=== PATIENT | female | born 1950 | race American Indian/Alaskan Native ===

== ENCOUNTER 2018-07-16 22:42 | Emergency (ER) | payer MEDICARE ==
[2018-07-16] MEDS ORDERED: NACL 0.9% 1000 ML 1,000 ML IV ONE (23:05)
[2018-07-16] MEDS ORDERED: ceFAZolin 2 GM in NACL 0.9% 100 ML IV ONE (23:05)
--- NOTE | 2018-07-16 23:07 | Emergency Department Report ---
ED General Adult HPI - General Chief complaint: Dyspnea/Respdistress Stated complaint: RESPIRATORY DISTRESS Time Seen by Provider: 07/16/18 22:52 Source: EMS (ems notes not available at time of chart dictation), RN notes reviewed, old records reviewed Mode of arrival: Stretcher Limitations: Altered Mental Status, Physical Limitation - History of Present Illness Initial comments: This is a 67-year-old female. The patient is a resident of a local fci, and has a history of diabetes, seizure, hypertension, nonverbal, chronic respiratory failure, on chronic tracheostomy, recently admitted to this hospital for sepsis, presumed secondary to left lung pneumonia, lung abscess, and empyema. Patient had a prolonged hospitalization, and was found to have a loculated left lung effusion, that received CT scan was started on antibiotics and currently has an indwelling left upper extremity PICC line, receiving cefazolin, 2 g, every 8 hours, until 08/01/2018. During her previous hospitalization, the case was discussed with CT surgery on- call at [facility], and the case was specifically discussed with CT surgeon, Dr. Gonzalez, who recommended there is no surgical indication unless patient has been on antibiotics for 4-6 weeks with no improvement. Patient is supposed to be following up with [facility] infectious disease consultants, who recommended laboratory monitoring, including CBC with differential, creatinine, liver tests, sedimentation rate, CRP once a week. Today, the patient is sent to the ER from her fci for evaluation of respiratory distress. The patient is nonverbal and is not able to describe exacerbating or relieving factors. As per verbal report from the nurse currently For the patient, the patient was apparently desaturating at the fci. She has chronic respiratory failure, and apparently requires chronic oxygen therapy. It is not known the patient was on her oxygen or not during the "desaturations." The patient is currently resting on the stretcher, no distress, nonverbal, saturating well on supplemental tracheostomy oxygen, and hemodynamically stable at this point in time. -: unknown Radiation: other Quality: other Consistency: other Improves with: other Worsens with: other Associated Symptoms: other - Related Data Home Medications Medication Instructions Recorded Confirmed Last Taken ALPRAZolam [Xanax] 1 mg FEEDTUBE BID PRN 06/19/18 06/19/18 Unknown Acetaminophen [Acetaminophen TAB] 650 mg FEEDTUBE PRN PRN 06/19/18 06/19/18 Unknown Amlodipine Besylate [Norvasc] 10 mg FEEDTUBE QDAY 06/19/18 06/19/18 Unknown Carvedilol [Coreg] 6.25 mg PO BID 06/19/18 06/19/18 Unknown Chlorhexidine Mouthwash [Peridex] 15 ml PO BID 06/19/18 06/19/18 Unknown FLUoxetine [PROzac] 20 mg PO QDAY 06/19/18 06/19/18 Unknown Famotidine [Pepcid] 20 mg FEEDTUBE HS 06/19/18 06/19/18 Unknown Lacosamide [Vimpat] 200 mg FEEDTUBE Q12H 06/19/18 06/19/18 Unknown Magnesium Oxide [Mag-Ox] 400 mg FEEDTUBE QDAY 06/19/18 06/19/18 Unknown Melatonin 5 mg FEEDTUBE HS 06/19/18 06/19/18 Unknown Psyllium Husk [Konsyl] 1 each FEEDTUBE DAILY 06/19/18 06/19/18 Unknown Previous Rx's Medication Instructions Recorded Last Taken Type Insulin NPH/Regular [NovoLIN 70/30] 36 unit SUB-Q BIDDIAB units 07/01/18 Unknown Rx ceFAZolin Sodium [ceFAZolin] 2 gm IV Q8HR 30 Days vial 07/01/18 Unknown Rx levETIRAcetam [Keppra ORAL LIQ] 1,500 mg FEEDTUBE BID 30 Days 07/01/18 Unknown Rx bottle Allergies Allergy/AdvReac Type Severity Reaction Status Date / Time No Known Allergies Allergy Unverified 06/19/18 09:20 ED Review of Systems ROS: Stated complaint: RESPIRATORY DISTRESS Other details as noted in HPI Comment: Unobtainable due to pts medical conditions ED Past Medical Hx - Past Medical History Hx Hypertension: Yes Hx CVA: Yes Hx Diabetes: Yes Hx Deep Vein Thrombosis: No Hx Seizures: Yes Hx Psychiatric Treatment: Yes (depression) - Surgical History Hx Pacemaker: No Hx Internal Defibrillator: No - Social History Smoking Status: Unknown if ever smoked - Medications Home Medications: Home Medications Medication Instructions Recorded Confirmed Last Taken Type ALPRAZolam [Xanax] 1 mg FEEDTUBE BID PRN 06/19/18 06/19/18 Unknown History Acetaminophen [Acetaminophen TAB] 650 mg FEEDTUBE PRN PRN 06/19/18 06/19/18 Unknown History Amlodipine Besylate [Norvasc] 10 mg FEEDTUBE QDAY 06/19/18 06/19/18 Unknown History Carvedilol [Coreg] 6.25 mg PO BID 06/19/18 06/19/18 Unknown History Chlorhexidine Mouthwash [Peridex] 15 ml PO BID 06/19/18 06/19/18 Unknown History FLUoxetine [PROzac] 20 mg PO QDAY 06/19/18 06/19/18 Unknown History Famotidine [Pepcid] 20 mg FEEDTUBE HS 06/19/18 06/19/18 Unknown History Lacosamide [Vimpat] 200 mg FEEDTUBE Q12H 06/19/18 06/19/18 Unknown History Magnesium Oxide [Mag-Ox] 400 mg FEEDTUBE QDAY 06/19/18 06/19/18 Unknown History Melatonin 5 mg FEEDTUBE HS 06/19/18 06/19/18 Unknown History Psyllium Husk [Konsyl] 1 each FEEDTUBE DAILY 06/19/18 06/19/18 Unknown History Insulin NPH/Regular [NovoLIN 70/30] 36 unit SUB-Q BIDDIAB units 07/01/18 Unkn own Rx ceFAZolin Sodium [ceFAZolin] 2 gm IV Q8HR 30 Days vial 07/01/18 Unknown Rx levETIRAcetam [Keppra ORAL LIQ] 1,500 mg FEEDTUBE BID 30 Days 07/01/18 Unknown Rx bottle ED Physical Exam - General Limitations: Altered Mental Status, Physical Limitation General appearance: in no apparent distress - Head Head exam: Present: atraumatic, normocephalic - Eye Eye exam: Present: normal appearance - ENT ENT exam: Present: normal orophraynx, mucous membranes moist, normal external ear exam, other (tracheostomy in place, with no redness, pus or streaking) - Neck Neck exam: Present: normal inspection. Absent: tenderness, meningismus - Respiratory Respiratory exam: Present: rhonchi (very faint rhonchi noted). Absent: respiratory distress - Cardiovascular Cardiovascular Exam: Present: regular rate, normal rhythm, normal heart sounds. Absent: bradycardia, tachycardia, irregular rhythm, systolic murmur, diastolic murmur, rubs, gallop - GI/Abdominal GI/Abdominal exam: Present: soft, other (feeding tube noted, with no redness, pus or streaking). Absent: distended, tenderness, guarding, rebound, rigid, pulsatile mass - Rectal Rectal exam: Present: normal inspection, other (minimal sacral ulcers noted, chaperoned by ER radio installer [employer]) - Extremities Exam Extremities exam: Present: normal inspection, other (2+ pulses noted in the bila teral upper, lower extremities. PICC line noted in the left upper extremity). Absent: normal capillary refill, pedal edema, joint swelling, calf tenderness - Back Exam Back exam: Present: normal inspection. Absent: paraspinal tenderness, vertebral tenderness - Neurological Exam Neurological exam: Present: altered, other (nonverbal, does not follow commands, not noted to be moving extremities) - Skin Skin exam: Present: warm, dry, intact, normal color. Absent: rash ED Course Vital Signs 07/16/18 07/17/18 22:51 01:38 Temperature 100 F H Pulse Rate 99 H Respiratory 20 18 Rate Blood Pressure 134/103 O2 Sat by Pulse 96 Oximetry - Reevaluation(s) Reevaluation #1: 07/17/18 00:01 Differential diagnosis, including not limited to: Mucous plugging, postobstructive pneumonia, pneumonia, pulmonary embolus, accidental prehospital oxygen removal assessment and plan: 67-year-old female with reportedly resolved hypoxia. Has a low-grade temperature in the emergency room, heart rate of 100, and found to be hyperglycemic. Laboratory studies otherwise unless far appear to be unchanged from prior. Lactic acid of 2.1 reviewed and appreciated. Patient currently on IV antibiotics. We will give her IV fluids, give her her dose of cefazolin, give insulin, and obtain CT scan of the chest. We will reassess after her initial data points have resulted Reevaluation #2: 07/17/18 02:39 The patient has been observed in the ER for hours without clinical decompensation. Her CT scan shows decreasing pneumonia, patient's currently radha ing antibiotics, otherwise,in airway obstruction or pulmonary embolus. The patient is observed in the ER for many hours without clinical decompensation, and is medically suitable to return back to her fci, to continue her antibiotic therapy, and to follow up with outpatient infectious disease. ED Medical Decision Making - Lab Data Result diagrams: 07/16/18 23:16 07/16/18 23:16 Vital Signs 07/16/18 22:51 Temperature 100 F H Pulse Rate 99 H Respiratory 20 Rate Blood Pressure 134/103 O2 Sat by Pulse 96 Oximetry Lab Results 07/16/18 07/16/18 07/16/18 Range/Units 23:16 23:16 23:16 WBC 8.7 (4.5-11.0) K/mm3 RBC 3.18 L (3.65-5.03) M/mm3 Hgb 10.0 L (10.1-14.3) gm/dl Hct 30.2 L (30.3-42.9) % MCV 95 (79-97) fl MCH 32 (28-32) pg MCHC 33 (30-34) % RDW 14.4 (13.2-15.2) % Plt Count 187 (140-440) K/mm3 Lymph % (Auto) 14.4 (13.4-35.0) % [place] % (Auto) 11.3 H (0.0-7.3) % Eos % (Auto) 0.6 (0.0-4.3) % Baso % (Auto) 1.2 (0.0-1.8) % Lymph # 1.2 (1.2-5.4) K/mm3 [place] # 1.0 H (0.0-0.8) K/mm3 Eos # 0.0 (0.0-0.4) K/mm3 Baso # 0.1 (0.0-0.1) K/mm3 Seg Neutrophils % 72.5 H (40.0-70.0) % Seg Neutrophils # 6.3 (1.8-7.7) K/mm3 PT (12.2-14.9) Sec. INR (0.87-1.13) APTT (24.2-36.6) Sec. Sodium 137 (137-145) mmol/L Potassium 4.1 (3.6-5.0) mmol/L Chloride 99.0 (98-107) mmol/L Carbon Dioxide 30 (22-30) mmol/L Anion Gap 12 mmol/L BUN 31 H (7-17) mg/dL Creatinine 0.7 (0.7-1.2) mg/dL Estimated GFR > 60 ml/min BUN/Creatinine Ratio 44 % Glucose 325 H (65-100) mg/dL Lactic Acid 2.10 H* (0.7-2.0) mmol/L Calcium 8.6 (8.4-10.2) mg/dL Magnesium 1.90 (1.7-2.3) mg/dL Total Bilirubin 0.80 (0.1-1.2) mg/dL AST 44 H (5-40) units/L ALT 9 (7-56) units/L Alkaline Phosphatase 284 H (35-129) units/L Total Creatine Kinase 17 L (30-135) units/L Total Protein 8.0 (6.3-8.2) g/dL Albumin 2.4 L (3.9-5) g/dL Albumin/Globulin Ratio 0.4 % 07/16/18 Range/Units 23:16 WBC (4.5-11.0) K/mm3 RBC (3.65-5.03) M/mm3 Hgb (10.1-14.3) gm/dl Hct (30.3-42.9) % MCV (79-97) fl MCH (28-32) pg MCHC (30-34) % RDW (13.2-15.2) % Plt Count (140-440) K/mm3 Lymph % (Auto) (13.4-35.0) % [place] % (Auto) (0.0-7.3) % Eos % (Auto) (0.0-4.3) % Baso % (Auto) (0.0-1.8) % Lymph # (1.2-5.4) K/mm3 [place] # (0.0-0.8) K/mm3 Eos # (0.0-0.4) K/mm3 Baso # (0.0-0.1) K/mm3 Seg Neutrophils % (40.0-70.0) % Seg Neutrophils # (1.8-7.7) K/mm3 PT 17.7 H (12.2-14.9) Sec. INR 1.41 H (0.87-1.13) APTT 26.0 (24.2-36.6) Sec. Sodium (137-145) mmol/L Potassium (3.6-5.0) mmol/L Chloride (98-107) mmol/L Carbon Dioxide (22-30) mmol/L Anion Gap mmol/L BUN (7-17) mg/dL Creatinine (0.7-1.2) mg/dL Estimated GFR ml/min BUN/Creatinine Ratio % Glucose (65-100) mg/dL Lactic Acid (0.7-2.0) mmol/L Calcium (8.4-10.2) mg/dL Magnesium (1.7-2.3) mg/dL Total Bilirubin (0.1-1.2) mg/dL AST (5-40) units/L ALT (7-56) units/L Alkaline Phosphatase (35-129) units/L Total Creatine Kinase (30-135) units/L Total Protein (6.3-8.2) g/dL Albumin (3.9-5) g/dL Albumin/Globulin Ratio % - EKG Data -: EKG Interpreted by Wy - EKG Data 07/17/18 00:00 Sinus tachycardia, 100 bpm, left axis deviation, QTC prolonged, high left ventricular voltage, not consistent with ST elevation myocardial infarction, prolonged NJ interval, borderline atrial enlargement, appears unchanged from prior EKG from 06/19/2018 - Radiology Data Radiology results: report reviewed, image reviewed Ordering Physician: SIMIN TURK MD Date of Service: 07/16/18 Procedure(s): XR chest 1V ap Accession Number(s): [id number] cc: SIMIN TURK MD Fluoro Time In Minutes: FINAL REPORT EXAM: XR CHEST 1V AP HISTORY: dyspnea TECHNIQUE: Chest single view AP PRIORS: None. FINDINGS: Left PICC line again identified catheter tip at the junction of the brachiocephalic and SVC unchanged. No focal pulmonary infiltrate or pleural effusion identified on the view obtained. No evidence for pneumothorax. Cardiac and mediastinal contours are unchanged no new abnormality identified in the chest. Tracheostomy is again noted. IMPRESSION: Tracheostomy and left PICC line again noted unchanged No acute change identified in the chest COMPARISON: CT of the chest from June 2018. Chest x-ray from today. TECHNIQUE: Contiguous axial images were obtained. Additional sagittal and coronal reformatted images were obtained. Administration of IV contrast given per institution protocol. Images submitted for interpretation. FINDINGS: Mild cardiac enlargement. Ascending thoracic aorta measures 3.4 centimeters in diameter within normal limits. Descending thoracic aorta measures 2.7 centimeters. No acute dissection or rupture. No pathologically enlarged intrathoracic or axillary lymph nodes. No pulmonary embolus. Tracheostomy tube is in place. Soft tissue partially opacifies the tracheostomy tube. Moderate left and small right-sided pleural effusions with nonspecific linear consolidations of the lower lobes. No obstructive lesion centrally within the tracheobronchial tree. [id number] degenerative changes of the thoracic spine. Fatty infiltration of visualized liver. Cholelithiasis. Liver is enlarged measuring 24 centimeters. Trace fluid at the margin of the liver. Nodular thickening of the adrenal glands. IMPRESSION: No pulmonary embolus. Moderate left and small right-sided pleural effusion with nonspecific linear consolidations of the lower lobes concerning for combination of atelectasis and pneumonia. Pleural effusion on the left is slightly decreased in size compared to prior study and remains partially loculated. Cholelithiasis. Mild enlargement of visualized liver with fatty infiltration. Trace perihepatic fluid. Critical care attestation.: If time is entered above; I have spent that time in minutes in the direct care of this critically ill patient, excluding procedure time. ED Disposition Clinical Impression: History of respiratory failure [facility] IP Is pt being admited?: No Does the pt Need Aspirin: No Condition: Fair Additional Instructions: CT scan today showed the following findings: COMPARISON: CT of the chest from June 2018. Chest x-ray from today. IMPRESSION: No pulmonary embolus. Moderate left and small right-sided pleural effusion with nonspecific linear consolidations of the lower lobes concerning for combination of atelectasis and pneumonia. Pleural effusion on the left is slightly decreased in size compared to prior study and remains partially loculated. Cholelithiasis. Mild enlargement of visualized liver with fatty infiltration. Trace perihepatic fluid. The patient should continue her outpatient medications, including antibiotics, and please be aware that while the patient was in the emergency room this evening, she received 2 g of cefazolin, including IV fluids. She was also given insulin for hyperglycemia. Please continue outpatient medications, follow-up with the patient's primary care doctor or infectious disease specialists within the next 7-10 days, return to the ER right away with lethargy, irritability, projectile vomiting, change in mental status, confusion, recurrent oxygen desaturation. Please make certain that the patient's tracheostomy collar as continuous oxygen as the patient has chronic respiratory failure. Referrals: JIGNESH BERMUDEZ MD [Staff Physician] - 7-10 days Forms: Accompanied Note
[2018-07-16 23:33] LABS: Basophils # (Auto) 0.1 K/mm3 (0.0-0.1); Basophils % (Auto) 1.2 % (0.0-1.8); Eosinophils % (Auto) 0.6 % (0.0-4.3); Hematocrit 30.2 % (30.3-42.9); Lymphocytes # (Auto) 1.2 K/mm3 (1.2-5.4); Lymphocytes % (Auto) 14.4 % (13.4-35.0); Mean Corpuscular HGB Conc 33 % (30-34); Mean Corpuscular Volume 95 fl (79-97); Monocytes % (Auto) 11.3 % (0.0-7.3); Platelet Count 187 K/mm3 (140-440); Red Blood Count 3.18 M/mm3 (3.65-5.03); Red Cell Distribution Width 14.4 % (13.2-15.2)
[2018-07-16 23:40] LABS: INR 1.41 (0.87-1.13)
[2018-07-16 23:47] LABS: Alanine Aminotransferase 9 units/L (7-56); Albumin 2.4 g/dL (3.9-5); BUN/Creatinine Ratio 44; Blood Urea Nitrogen 31 mg/dL (7-17); Calcium 8.6 mg/dL (8.4-10.2); Hemolysis Index 2
--- NOTE | 2018-07-16 23:51 | XRay Report ---
FINAL REPORT EXAM: XR CHEST 1V AP HISTORY: dyspnea TECHNIQUE: Chest single view AP PRIORS: None. FINDINGS: Left PICC line again identified catheter tip at the junction of the brachiocephalic and SVC unchanged . No focal pulmonary infiltrate or pleural effusion identified on the view obtained. No evidence for pneumothorax. Cardiac and mediastinal contours are unchanged no new abnormality identified in the nick st. Tracheostomy is again noted. IMPRESSION: Tracheostomy and left PICC line again noted unchanged No acute change identified in the chest
[2018-07-16] MEDS ORDERED: HumuLIN R IV ONE (23:52)
[2018-07-17 01:21] LABS: Erythrocyte Sedimentation Rate 121 mm/Hr (0-20)
--- NOTE | 2018-07-17 02:28 | Cat Scan Report ---
FINAL REPORT EXAM: CT ANGIO CHEST HISTORY: dyspnea hx left abscess COMPARISON: CT of the chest from June 2018. Chest x-ray from today. TECHNIQUE: Contiguous axial images were obtained. Additional sagittal and coronal reformatted images were obtained. Administration of IV contrast given per institution protocol. Images submitted for in terpretation. FINDINGS: Mild cardiac enlargement. Ascending thoracic aorta measures 3.4 centimeters in diameter within normal limits. Descending thoracic aorta measures 2.7 centimeters. No acute dissection or rupture. No patho logically enlarged intrathoracic or axillary lymph nodes. No pulmonary embolus. Tracheostomy tube is in place. Soft tissue partially opacifies the tracheostomy tube. Moderate left and small right-sided pleural effusions with nonspecific linear consolidations of the l ower lobes. No obstructive lesion centrally within the tracheobronchial tree. [id number] degene rative changes of the thoracic spine. Fatty infiltration of visualized liver. Cholelithiasis. Liver i s enlarged measuring 24 centimeters. Trace fluid at the margin of the liver. Nodular thickening of th e adrenal glands. IMPRESSION: No pulmonary embolus. Moderate left and small right-sided pleural effusion with nonspecific linear consolidations of the lo wer lobes concerning for combination of atelectasis and pneumonia. Pleural effusion on the left is sl ightly decreased in size compared to prior study and remains partially loculated. Cholelithiasis. Mild enlargement of visualized liver with fatty infiltration. Trace perihepatic fluid.
[2018-07-17 02:48] VITALS: BP 179/98
== END 2018-07-17 05:46 | disposition short-term general hospital (02) ==
LOC: ED 22:42
DX: J96.90 Respiratory failure, unspecified, unspecified whether with hypoxia or hypercapnia (principal); R41.82 Altered mental status, unspecified; I10 Essential (primary) hypertension; E11.9 Type 2 diabetes mellitus without complications; F32.9 Major depressive disorder, single episode, unspecified; Z79.4 Long term (current) use of insulin
CPT/HCPCS: 36415; 71045; 71275; 80053; 82140; 82550; 83735; 85025; 85610; 85652; 85730; 86140; 93005; 93010; 96365; 96375; 99285; J0690; J7030; Q9967; 96361; J1815

== ENCOUNTER 2018-08-27 14:58 | Inpatient (IN) | payer MEDICARE, OTHER ==
--- NOTE | 2018-08-27 16:30 | Emergency Department Report ---
ED General Adult HPI - General Chief complaint: Tube Replacement Stated complaint: TRACHE CAME OUT Time Seen by Provider: 08/27/18 16:17 Source: EMS (ems notes not available at time of chart dictation), RN notes reviewed, old records reviewed Mode of arrival: Stretcher Limitations: Physical Limitation - History of Present Illness Initial comments: This is a 67-year-old female. The patient is a resident of a local long-term, has a history of diabetes, seizure, hypertension, chronic respiratory failure, with indwelling tracheostomy. The patient was sent to the emergency room by her long-term for displaced tracheostomy tube. Her primary care doctor is Dr. Veena Leal There are no other complaints. In the emergency room, the patient is moving 4 extremities, appears to be in no complaints, and family is at the bedside. As for close nursing documentation from the long-term, the patient self removed her tracheostomy, and the staff were unable to reinsert. In the emergency room, the patient was evaluated by myself and respiratory therapy. The insertion site/stoma and the neck appears to be closed, and there is evidence that the tube may have been displaced for days, rather than hours. Neither myself nor respiratory therapy were able to find a suitable lumen to reinsert her 6 [place] tracheostomy tube. Contacted the covering display department manager, Dr. Kalin Reinoso, who recommended admission for airway observation, and inpatient determination as to whether or not patient may be weaned off of her tracheostomy. Her group will follow in consultation. Presented the case to Hospital physician, Dr. Dykes, who will admit the patient to the medical service. -: unknown Location: neck Radiation: non-radiation Severity scale (0 -10): 4 Quality: other Consistency: other Improves with: other Worsens with: other - Related Data Home Medications Medication Instructions Recorded Confirmed Last Taken ALPRAZolam [Xanax] 1 mg FEEDTUBE BID PRN 06/19/18 06/19/18 Unknown Acetaminophen [Acetaminophen TAB] 650 mg FEEDTUBE PRN PRN 06/19/18 06/19/18 Unknown Amlodipine Besylate [Norvasc] 10 mg FEEDTUBE QDAY 06/19/18 06/19/18 Unknown Carvedilol [Coreg] 6.25 mg PO BID 06/19/18 06/19/18 Unknown Chlorhexidine Mouthwash [Peridex] 15 ml PO BID 06/19/18 06/19/18 Unknown FLUoxetine [PROzac] 20 mg PO QDAY 06/19/18 06/19/18 Unknown Famotidine [Pepcid] 20 mg FEEDTUBE HS 06/19/18 06/19/18 Unknown Lacosamide [Vimpat] 200 mg FEEDTUBE Q12H 06/19/18 06/19/18 Unknown Magnesium Oxide [Mag-Ox] 400 mg FEEDTUBE QDAY 06/19/18 06/19/18 Unknown Melatonin 5 mg FEEDTUBE HS 06/19/18 06/19/18 Unknown Psyllium Husk [Konsyl] 1 each FEEDTUBE DAILY 06/19/18 06/19/18 Unknown Previous Rx's Medication Instructions Recorded Last Taken Type Insulin NPH/Regular [NovoLIN 70/30] 36 unit SUB-Q BIDDIAB units 07/01/18 Unknown Rx ceFAZolin Sodium [ceFAZolin] 2 gm IV Q8HR 30 Days vial 07/01/18 Unknown Rx levETIRAcetam [Keppra ORAL LIQ] 1,500 mg FEEDTUBE BID 30 Days 07/01/18 Unknown Rx bottle Allergies Allergy/AdvReac Type Severity Reaction Status Date / Time No Known Allergies Allergy Unverified 06/19/18 09:20 ED Review of Systems ROS: Stated complaint: TRACHE CAME OUT Other details as noted in HPI Constitutional: denies: fever Eyes: denies: eye discharge Respiratory: denies: cough, wheezing Cardiovascular: denies: syncope Gastrointestinal: denies: nausea Musculoskeletal: denies: back pain Psychiatric: other ED Past Medical Hx - Past Medical History Previous Medical History?: Yes Hx Hypertension: Yes Hx CVA: Yes Hx Diabetes: Yes Hx Deep Vein Thrombosis: No Hx Seizures: Yes Hx Psychiatric Treatment: Yes (depression) Additional medical history: respiratory failure, dyspnea, encephalitis, - Surgical History Past Surgical History?: Yes Hx Pacemaker: No Hx Internal Defibrillator: No Additional Surgical History: Tracheostomy - Social History Smoking Status: Unknown if ever smoked Substance Use Type: None - Medications Home Medications: Home Medications Medication Instructions Recorded Confirmed Last Taken Type ALPRAZolam [Xanax] 1 mg FEEDTUBE BID PRN 06/19/18 06/19/18 Unknown History Acetaminophen [Acetaminophen TAB] 650 mg FEEDTUBE PRN PRN 06/19/18 06/19/18 Unknown History Amlodipine Besylate [Norvasc] 10 mg FEEDTUBE QDAY 06/19/18 06/19/18 Unknown History Carvedilol [Coreg] 6.25 mg PO BID 06/19/18 06/19/18 Unknown History Chlorhexidine Mouthwash [Peridex] 15 ml PO BID 06/19/18 06/19/18 Unknown History FLUoxetine [PROzac] 20 mg PO QDAY 06/19/18 06/19/18 Unknown History Famotidine [Pepcid] 20 mg FEEDTUBE HS 06/19/18 06/19/18 Unknown History Lacosamide [Vimpat] 200 mg FEEDTUBE Q12H 06/19/18 06/19/18 Unknown History Magnesium Oxide [Mag-Ox] 400 mg FEEDTUBE QDAY 06/19/18 06/19/18 Unknown History Melatonin 5 mg FEEDTUBE HS 06/19/18 06/19/18 Unknown History Psyllium Husk [Konsyl] 1 each FEEDTUBE DAILY 06/19/18 06/19/18 Unknown History Insulin NPH/Regular [NovoLIN 70/30] 36 unit SUB-Q BIDDIAB units 07/01/18 Unknown Rx ceFAZolin Sodium [ceFAZolin] 2 gm IV Q8HR 30 Days vial 07/01/18 Unknown Rx levETIRAcetam [Keppra ORAL LIQ] 1,500 mg FEEDTUBE BID 30 Days 07/01/18 Unknown Rx bottle ED Physical Exam - General Limitations: Physical Limitation General appearance: alert, in no apparent distress - Head Head exam: Present: atraumatic, normocephalic - Eye Eye exam: Present: normal appearance, EOMI. Absent: nystagmus - ENT ENT exam: Present: normal exam, normal orophraynx, mucous membranes moist, normal external ear exam - Neck Neck exam: Present: full ROM. Absent: normal inspection (stoma noted, no redness, pus or streaking, has very minimal extruded tissue noted.), tenderness - Respiratory Respiratory exam: Present: normal lung sounds bilaterally. Absent: respiratory distress - Cardiovascular Cardiovascular Exam: Present: regular rate, normal rhythm, normal heart sounds. Absent: bradycardia, tachycardia, irregular rhythm, systolic murmur, diastolic murmur, rubs, gallop - GI/Abdominal GI/Abdominal exam: Present: soft. Absent: distended, tenderness, guarding, rebound, rigid, pulsatile mass - Extremities Exam Extremities exam: Present: normal inspection, pedal edema, other (2+ pulses noted in the bilateral upper, lower extremities. Compartments soft. No long bony tenderness. The pelvis is stable.). Absent: calf tenderness - Back Exam Back exam: Present: normal inspection, full ROM. Absent: tenderness, CVA tenderness (R), paraspinal tenderness, vertebral tenderness - Neurological Exam Neurological exam: Present: alert, other (Extraocular movements intact. Tongue midline. No facial droop. Facial sensation intact to light touch in the V1, V2, V3 distribution bilaterally. 5 and 5 strength in 4 extremities.. Sensation is intact to light touch in 4 extremities.). Absent: motor sensory deficit - Psychiatric Psychiatric exam: Present: normal mood - Skin Skin exam: Present: warm, dry, intact, normal color. Absent: rash ED Course Vital Signs 08/27/18 15:19 Temperature 97.9 F Pulse Rate 68 Respiratory 16 Rate Blood Pressure 145/78 O2 Sat by Pulse 99 Oximetry ED Medical Decision Making - Lab Data Result diagrams: 08/27/18 17:06 08/27/18 17:06 Vital Signs 08/27/18 15:19 Temperature 97.9 F Pulse Rate 68 Respiratory 16 Rate Blood Pressure 145/78 O2 Sat by Pulse 99 Oximetry Lab Results 08/27/18 08/27/18 08/27/18 Range/Units 17:06 17:06 17:06 WBC 3.0 L (4.5-11.0) K/mm3 RBC 3.66 (3.65-5.03) M/mm3 Hgb 11.3 (10.1-14.3) gm/dl Hct 34.0 (30.3-42.9) % MCV 93 (79-97) fl MCH 31 (28-32) pg MCHC 33 (30-34) % RDW 14.7 (13.2-15.2) % Plt Count 164 (140-440) K/mm3 Lymph % (Auto) 32.2 (13.4-35.0) % [place] % (Auto) 8.1 H (0.0-7.3) % Eos % (Auto) 3.5 (0.0-4.3) % Baso % (Auto) 1.1 (0.0-1.8) % Lymph # 1.0 L (1.2-5.4) K/mm3 [place] # 0.2 (0.0-0.8) K/mm3 Eos # 0.1 (0.0-0.4) K/mm3 Baso # 0.0 (0.0-0.1) K/mm3 Seg Neutrophils % 55.1 (40.0-70.0) % Seg Neutrophils # 1.6 L (1.8-7.7) K/mm3 PT 17.4 H (12.2-14.9) Sec. INR 1.34 H (0.87-1.13) APTT 26.3 (24.2-36.6) Sec. Sodium 137 (137-145) mmol/L Potassium 3.7 (3.6-5.0) mmol/L Chloride 98.3 (98-107) mmol/L Carbon Dioxide 27 (22-30) mmol/L Anion Gap 15 mmol/L BUN 28 H (7-17) mg/dL Creatinine 0.6 L (0.7-1.2) mg/dL Estimated GFR > 60 ml/min BUN/Creatinine Ratio 47 % Glucose 188 H (65-100) mg/dL Calcium 9.2 (8.4-10.2) mg/dL Total Creatine Kinase 33 (30-135) units/L - Radiology Data Radiology results: report reviewed, image reviewed Referring Physician: SIMIN TURK Patient Name: BRIAN FLORES Date of : 1950 Sex: Female Report Date: 2018-08-27 Report Status: Finalized Findings [facility] [address] [place] [address] XRay Report Signed Patient: BRIAN FLORES MR#: [id number] : 1950 Acct:[id number] Age/Sex: 67 / F ADM Date: 08/27/18 Loc: ED Attending Dr: Ordering Physician: SIMIN TURK MD Date of Service: 08/27/18 Procedure(s): XR chest 1V ap Accession Number(s): [id number] cc: SIMIN TURK MD Fluoro Time In Minutes: FINAL REPORT EXAM: XR CHEST 1V AP HISTORY: trach dislodgement TECHNIQUE: Chest single AP PRIORS: Comparison is dated July 16, 2018 FINDINGS: The tracheostomy tube is no longer identified. There is some streaky increased opacity at the left lung base likely reflecting areas of atelectasis similar to the prior exam. Cardiac and mediastinal contours are unremarkable. Is pulmonary vasculature is unremarkable. No pleural effusion or pneumothorax identified. Cardiac and mediastinal contours are unchanged. IMPRESSION: Tracheostomy no longer identified Mild atelectasis noted at the left lung base Transcribed By: CARRINGTON Dictated By: OVIDIO HARE MD Electronically Authenticated By: OVIDIO HARE MD Signed Date/Time: 08/27/18 1811 - Medical Decision Making Differential diagnosis, including not limited to: Tracheostomy displacement, chronic respiratory failure Assessment and plan: 67-year-old female with chronic respiratory failure, inadvertently dislodged tracheostomy, saturating at 99% on room air, in no acute distress. Patient to be admitted to the medical service for airway observation, inpatient team will determine her for repeat tracheostomy placement, in conjunction with the pulmonary team. Critical care attestation.: If time is entered above; I have spent that time in minutes in the direct care of this critically ill patient, excluding procedure time. ED Disposition Clinical Impression: History of respiratory failure Tracheostomy complication Qualifiers: Tracheostomy complication: unspecified Qualified Code(s): J95.00 - Unspecified tracheostomy complication Disposition: OP ADMIT IP TO THIS HOSP Is pt being admited?: Yes Condition: Good
[2018-08-27 17:25] LABS: Basophils % (Auto) 1.1 % (0.0-1.8); Eosinophils # (Auto) 0.1 K/mm3 (0.0-0.4); Eosinophils % (Auto) 3.5 % (0.0-4.3); Hemoglobin 11.3 gm/dl (10.1-14.3); Lymphocytes % (Auto) 32.2 % (13.4-35.0); Mean Corpuscular HGB Conc 33 % (30-34); Mean Corpuscular Volume 93 fl (79-97); Monocytes # (Auto) 0.2 K/mm3 (0.0-0.8); Monocytes % (Auto) 8.1 % (0.0-7.3); Platelet Count 164 K/mm3 (140-440); Red Blood Count 3.66 M/mm3 (3.65-5.03); Red Cell Distribution Width 14.7 % (13.2-15.2)
[2018-08-27 17:29] LABS: INR 1.34 (0.87-1.13)
[2018-08-27 17:30] LABS: Partial Thromboplastin Time 26.3 Sec. (24.2-36.6)
[2018-08-27 17:38] LABS: BUN/Creatinine Ratio 47; Blood Urea Nitrogen 28 mg/dL (7-17); Calcium 9.2 mg/dL (8.4-10.2); Hemolysis Index 13
--- NOTE | 2018-08-27 18:11 | XRay Report ---
FINAL REPORT EXAM: XR CHEST 1V AP HISTORY: trach dislodgement TECHNIQUE: Chest single AP PRIORS: Comparison is dated July 16, 2018 FINDINGS: The tracheostomy tube is no longer identified. There is some streaky increased opacity at the left lung base likely reflecting areas of atelectasis similar to the prior exam. Cardiac and mediastinal contours are unremarkable. Is pulmonary vasculatur e is unremarkable. No pleural effusion or pneumothorax identified. Cardiac and mediastinal contours a re unchanged. IMPRESSION: Tracheostomy no longer identified Mild atelectasis noted at the left lung base
[2018-08-27] MEDS ORDERED: ZOFRAN IV PRN (19:12)
[2018-08-27] MEDS ORDERED: TYLENOL PO PRN (19:12)
[2018-08-27] MEDS ORDERED: SODIUM CHLORIDE FLUSH SYRINGE 10 ML IV PRN (19:12)
[2018-08-27] MEDS ORDERED: PROVENTIL IH PRN (19:12)
[2018-08-27] MEDS ORDERED: NON-FORMULARY (Lacosamide [Vimpat] 200 MG) FEEDTUBE SCH (19:15)
--- NOTE | 2018-08-27 19:16 | History and Physical Report ---
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 Pt is nonverbal and unable to provide detailed history. Pt history taken from medical record, as well as granddaughter who is at bedside during exam and interview. Pt was found today by SNF staff to have dislodged her tracheostomy. EMS notified and patient found to be in distress. Pt transported to [facility] for further care and evaluation. Pt seen and evaluated in ED and found to have Acute on Chronic Respiratory Failure. Pulmonary team consulted in ED. Pt initiated on supplemental oxygen and admitted to [facility] unit for further evaluation. Past History Past Medical History: diabetes, hypertension, seizures, stroke, other (chronic respiratory failure) Past Surgical History: Other (Trach/Peg) Social history: single. denies: smoking, alcohol abuse, prescription drug abuse Family history: hypertension Medications and Allergies Allergies Allergy/AdvReac Type Severity Reaction Status Date / Time No Known Allergies Allergy Unverified 06/19/18 09:20 Home Medications Medication Instructions Recorded Confirmed Last Taken Type ALPRAZolam [Xanax] 1 mg FEEDTUBE BID PRN 06/19/18 06/19/18 Unknown History Acetaminophen [Acetaminophen TAB] 650 mg FEEDTUBE PRN PRN 06/19/18 06/19/18 Unknown History Amlodipine Besylate [Norvasc] 10 mg FEEDTUBE QDAY 06/19/18 06/19/18 Unknown History Carvedilol [Coreg] 6.25 mg PO BID 06/19/18 06/19/18 Unknown History Chlorhexidine Mouthwash [Peridex] 15 ml PO BID 06/19/18 06/19/18 Unknown History FLUoxetine [PROzac] 20 mg PO QDAY 06/19/18 06/19/18 Unknown History Famotidine [Pepcid] 20 mg FEEDTUBE HS 06/19/18 06/19/18 Unknown History Lacosamide [Vimpat] 200 mg FEEDTUBE Q12H 06/19/18 06/19/18 Unknown History Magnesium Oxide [Mag-Ox] 400 mg FEEDTUBE QDAY 06/19/18 06/19/18 Unknown History Melatonin 5 mg FEEDTUBE HS 06/19/18 06/19/18 Unknown History Psyllium Husk [Konsyl] 1 each FEEDTUBE DAILY 06/19/18 06/19/18 Unknown History Insulin NPH/Regular [NovoLIN 70/30] 36 unit SUB-Q BIDDIAB units 07/01/18 Unknown Rx ceFAZolin Sodium [ceFAZolin] 2 gm IV Q8HR 30 Days vial 07/01/18 Unknown Rx levETIRAcetam [Keppra ORAL LIQ] 1,500 mg FEEDTUBE BID 30 Days 07/01/18 Unknown Rx bottle Active Meds: Active Medications Acetaminophen (Tylenol) 650 mg PO Q4H PRN PRN Reason: Pain MILD(1-3)/Fever >100.5/WAY Albuterol (Proventil) 2.5 mg IH Q4HRT PRN PRN Reason: Shortness Of Breath Ondansetron HCl (Zofran) 4 mg IV Q8H PRN PRN Reason: Nausea And Vomiting Sodium Chloride (Sodium Chloride Flush Syringe 10 Ml) 10 ml IV BID YAEL Sodium Chloride (Sodium Chloride Flush Syringe 10 Ml) 10 ml IV PRN PRN PRN Reason: LINE FLUSH Review of Systems ROS unobtainable: due to mental status Exam - Constitutional Vitals: Temp Pulse Resp BP Pulse Ox 97.9 F 68 16 145/78 99 08/27/18 15:19 08/27/18 15:19 08/27/18 15:19 08/27/18 15:19 08/27/18 15:19 General appearance: Present: mild distress - EENT Eyes: Present: PERRL ENT: hearing intact, clear oral mucosa - Neck Neck: Present: supple, normal ROM - Respiratory Respiratory: bilateral: diminished - Cardiovascular Heart Sounds: Present: S1 & S2. Absent: rub, click - Extremities Extremities: pulses symmetrical, No edema Peripheral Pulses: within normal limits - Abdominal General gastrointestinal: Present: soft, non-tender, non-distended, normal bowel sounds Female genitourinary: Present: normal - Integumentary Integumentary: Present: clear, warm, dry - Musculoskeletal Musculoskeletal: generalized weakness - Psychiatric Psychiatric: no appropriate mood/affect, no intact judgment & insight, no memory intact - Neurologic Neurologic: focal deficits, no moves all extremities, no gait normal Results - Labs CBC & Chem 7: 08/27/18 17:06 08/27/18 17:06 Labs: Abnormal lab results 08/27/18 08/27/18 08/27/18 Range/Units 17:06 17:06 17:06 WBC 3.0 L (4.5-11.0) K/mm3 [place] % (Auto) 8.1 H (0.0-7.3) % Lymph # 1.0 L (1.2-5.4) K/mm3 Seg Neutrophils # 1.6 L (1.8-7.7) K/mm3 PT 17.4 H (12.2-14.9) Sec. INR 1.34 H (0.87-1.13) BUN 28 H (7-17) mg/dL Creatinine 0.6 L (0.7-1.2) mg/dL Glucose 188 H (65-100) mg/dL Assessment and Plan - Patient Problems (1) Acute and chronic respiratory failure Current Visit: No Status: Acute Qualifiers: Respiratory failure complication: hypoxia Qualified Code(s): J96.21 - Acute and chronic respiratory failure with hypoxia Plan to address problem: Admit to [facility] unit, supplemental oxygen, pulse oximetry, aspiration precautions, pulmonary consulted for trach replacement as clinically indicated. (2) Tracheostomy complication Current Visit: Yes Status: Acute Qualifiers: Tracheostomy complication: stoma malfunction Qualified Code(s): J95.03 - Malfunction of tracheostomy stoma Plan to address problem: Pulmonary consulted in ED, supportive care, aspiration precautions, (3) Seizure disorder Current Visit: No Status: Acute Plan to address problem: continue keppra, seizure precautions (4) DVT prophylaxis Current Visit: Yes Status: Acute Plan to address problem: SCD to BLE while in bed.
[2018-08-27] MEDS: COREG PO SCH (21:54)
[2018-08-27] MEDS ORDERED: LEVETIRACETAM 1500 MG FEEDTUBE SCH (22:00)
[2018-08-27] MEDS: PEPCID FEEDTUBE SCH (22:00)
[2018-08-27] MEDS ORDERED: NON-FORMULARY (Melatonin [Melatonin] 5 MG) FEEDTUBE SCH (22:00)
[2018-08-27] MEDS: VIMPAT PO SCH (22:00)
[2018-08-27] MEDS: KEPPRA FEEDTUBE SCH (22:00)
[2018-08-27] MEDS: SODIUM CHLORIDE FLUSH SYRINGE 10 ML IV SCH (22:01)
[2018-08-27] MEDS: XANAX FEEDTUBE PRN (23:41)
[2018-08-28] MEDS: COREG PO SCH ×2 (10:00→23:04)
[2018-08-28] MEDS: SODIUM CHLORIDE FLUSH SYRINGE 10 ML IV SCH ×2 (10:00→23:06)
[2018-08-28] MEDS: KEPPRA FEEDTUBE SCH ×2 (10:00→23:05)
[2018-08-28] MEDS ORDERED: PSYLLIUM HUSK FEEDTUBE SCH (10:00)
--- NOTE | 2018-08-28 10:40 | Progress Note ---
Assessment and Plan Assessment and plan: --Acute on chronic respiratory failure; secondary to dislodged tracheostomy tube Patient is comfortable not in acute distress, follow-up pulmonary evaluation and recommendations and supportive care --History of seizure disorder; seizure precautions Continue home antiepileptic medications, neurology consult if needed --Type 2 diabetes mellitus; Accu-Chek sliding scale coverage and ADA diet Long-acting insulin, diabetic education closely monitor blood sugars --Hypertension; moderate control, continue current antihypertensives and when necessary medications --DVT prophylaxis; Lovenox Closely monitor the patient and adjust management as needed Follow-up pulmonary evaluation and recommendations Possible discharge in 1-2 days if stable History Interval history: Patient seen and examined medical records reviewed No new events reported by the nursing staff Admitted with dislodgment of tracheostomy tube Patient is comfortable in no new complaints Pulmonary evaluation pending Hospitalist Physical - Constitutional Vitals: Temp Pulse Resp BP Pulse Ox 97.8 F 71 18 146/86 99 08/28/18 08:25 08/28/18 08:25 08/28/18 08:25 08/28/18 08:25 08/28/18 08:25 General appearance: Present: mild distress - EENT Eyes: Present: PERRL, EOM intact - Neck Neck: Present: supple - Respiratory Respiratory effort: normal Respiratory: bilateral: diminished, negative: rales, rhonchi, wheezing - Cardiovascular Rhythm: regular Heart Sounds: Present: S1 & S2 - Extremities Extremities: no ischemia, No edema - Abdominal General gastrointestinal: soft, non-tender, non-distended, normal bowel sounds - Integumentary Integumentary: Present: clear, warm - Psychiatric Psychiatric: appropriate mood/affect - Neurologic Neurologic: moves all extremities Results - Labs CBC & Chem 7: 08/27/18 17:06 08/27/18 17:06 Labs: Laboratory Last Values WBC 3.0 K/mm3 (4.5-11.0) L 08/27/18 17:06 RBC 3.66 M/mm3 (3.65-5.03) 08/27/18 17:06 Hgb 11.3 gm/dl (10.1-14.3) 08/27/18 17:06 Hct 34.0 % (30.3-42.9) 08/27/18 17:06 MCV 93 fl (79-97) 08/27/18 17:06 MCH 31 pg (28-32) 08/27/18 17:06 MCHC 33 % (30-34) 08/27/18 17:06 RDW 14.7 % (13.2-15.2) 08/27/18 17:06 Plt Count 164 K/mm3 (140-440) 08/27/18 17:06 Lymph % (Auto) 32.2 % (13.4-35.0) 08/27/18 17:06 [place] % (Auto) 8.1 % (0.0-7.3) H 08/27/18 17:06 Eos % (Auto) 3.5 % (0.0-4.3) 08/27/18 17:06 Baso % (Auto) 1.1 % (0.0-1.8) 08/27/18 17:06 Lymph # 1.0 K/mm3 (1.2-5.4) L 08/27/18 17:06 [place] # 0.2 K/mm3 (0.0-0.8) 08/27/18 17:06 Eos # 0.1 K/mm3 (0.0-0.4) 08/27/18 17:06 Baso # 0.0 K/mm3 (0.0-0.1) 08/27/18 17:06 Seg Neutrophils % 55.1 % (40.0-70.0) 08/27/18 17:06 Seg Neutrophils # 1.6 K/mm3 (1.8-7.7) L 08/27/18 17:06 PT 17.4 Sec. (12.2-14.9) H 08/27/18 17:06 INR 1.34 (0.87-1.13) H 08/27/18 17:06 APTT 26.3 Sec. (24.2-36.6) 08/27/18 17:06 Sodium 137 mmol/L (137-145) 08/27/18 17:06 Potassium 3.7 mmol/L (3.6-5.0) 08/27/18 17:06 Chloride 98.3 mmol/L (98-107) 08/27/18 17:06 Carbon Dioxide 27 mmol/L (22-30) 08/27/18 17:06 Anion Gap 15 mmol/L 08/27/18 17:06 BUN 28 mg/dL (7-17) H 08/27/18 17:06 Creatinine 0.6 mg/dL (0.7-1.2) L 08/27/18 17:06 Estimated GFR > 60 ml/min 08/27/18 17:06 BUN/Creatinine Ratio 47 % 08/27/18 17:06 Glucose 188 mg/dL (65-100) H 08/27/18 17:06 POC Glucose 176 (70-105) H 08/28/18 07:45 Calcium 9.2 mg/dL (8.4-10.2) 08/27/18 17:06 Total Creatine Kinase 33 units/L (30-135) 08/27/18 17:06
[2018-08-28] MEDS ORDERED: PNEUMOVAX 23 IM ONE (12:00)
[2018-08-28] MEDS: PROzac PO SCH (18:57)
[2018-08-28] MEDS: METAMUCIL PO SCH (18:57)
[2018-08-28] MEDS: NORVASC FEEDTUBE SCH (18:57)
[2018-08-28] MEDS: VIMPAT PO SCH ×2 (18:59→23:02)
--- NOTE | 2018-08-28 19:03 | Consultation ---
History of Present Illness Consult date: 08/28/18 Requesting physician: SIMIN TURK Reason for consult: other (Acute Respiratory Failure) History of present illness: PCCM CONSULT NOTE (Full dictation # [id number]) Please see dictated notes for full details Past History Past Medical History: diabetes, hypertension, seizures, stroke, other (chronic respiratory failure) Past Surgical History: Other (Trach/Peg) Social history: single. denies: smoking, alcohol abuse, prescription drug abuse Family history: hypertension Medications and Allergies Allergies Allergy/AdvReac Type Severity Reaction Status Date / Time No Known Allergies Allergy Unverified 06/19/18 09:20 Home Medications Medication Instructions Recorded Confirmed Last Taken Type ALPRAZolam [Xanax] 1 mg FEEDTUBE BID PRN 06/19/18 08/27/18 Unknown History Acetaminophen [Acetaminophen TAB] 650 mg FEEDTUBE PRN PRN 06/19/18 08/27/18 Unknown History Amlodipine Besylate [Norvasc] 10 mg FEEDTUBE QDAY 06/19/18 08/27/18 Unknown History Carvedilol [Coreg] 6.25 mg PO BID 06/19/18 08/27/18 Unknown History Chlorhexidine Mouthwash [Peridex] 15 ml PO BID 06/19/18 08/27/18 Unknown History FLUoxetine [PROzac] 20 mg FEEDTUBE QDAY 06/19/18 08/27/18 Unknown History Famotidine [Pepcid] 20 mg FEEDTUBE HS 06/19/18 08/27/18 Unknown History Lacosamide [Vimpat] 200 mg FEEDTUBE Q12H 06/19/18 08/27/18 Unknown History Magnesium Oxide [Mag-Ox] 400 mg FEEDTUBE QDAY 06/19/18 08/27/18 Unknown History Melatonin 5 mg FEEDTUBE HS 06/19/18 08/27/18 Unknown History Psyllium Husk [Konsyl] 1 each FEEDTUBE DAILY 06/19/18 08/27/18 Unknown History levETIRAcetam [Keppra ORAL LIQ] 1,500 mg FEEDTUBE BID 30 Days 07/01/18 08/27/18 Unknown Rx bottle Diphenhydramine HCl 50 mg IM Q12H PRN 08/27/18 08/27/18 Unknown History Insulin Glargine [Lantus VIAL] 10 units SUB-Q QHS 08/27/18 08/27/18 Unknown History Insulin NPH/Regular 30 units SUB-Q BIDAC 08/27/18 08/27/18 Unknown History traMADol 50 mg FEEDTUBE Q12H PRN 08/27/18 08/27/18 Unknown History Active Meds: Active Medications Acetaminophen (Tylenol) 650 mg FEEDTUBE PRN PRN PRN Reason: Pain, Mild (1-3) Albuterol (Proventil) 2.5 mg IH Q4HRT PRN PRN Reason: Shortness Of Breath Alprazolam (Xanax) 1 mg FEEDTUBE BID PRN PRN Reason: Anxiety Last Admin: 08/27/18 23:41 Dose: 1 mg Documented by: Amlodipine Besylate (Norvasc) 10 mg FEEDTUBE QDAY [facility] Carvedilol (Coreg) 6.25 mg PO BID [facility] Last Admin: 08/27/18 21:54 Dose: 6.25 mg Documented by: Famotidine (Pepcid) 20 mg FEEDTUBE [facility] Last Admin: 08/27/18 22:00 Dose: 20 mg Documented by: Fluoxetine HCl (Prozac) 20 mg PO QDAY [facility] Insulin Human Isoph/Insulin Regular (Humulin 70/30) 36 unit SUB-Q BIDDIAB [facility] Lacosamide (Vimpat) 200 mg PO Q12HR [facility] Last Admin: 08/27/18 22:00 Dose: 200 mg Documented by: Levetiracetam (Keppra) 1,500 mg FEEDTUBE BID [facility] Last Admin: 08/27/18 22:00 Dose: 1,500 mg Documented by: Magnesium Oxide (Mag-Ox) 400 mg PO QDAY [facility] Ondansetron HCl (Zofran) 4 mg IV Q8H PRN PRN Reason: Nausea And Vomiting Psyllium Hydrophilic Mucilloid (Metamucil) 1 each PO DAILY [facility] Sodium Chloride (Sodium Chloride Flush Syringe 10 Ml) 10 ml IV BID [facility] Last Admin: 08/27/18 22:01 Dose: 10 ml Documented by: Sodium Chloride (Sodium Chloride Flush Syringe 10 Ml) 10 ml IV PRN PRN PRN Reason: LINE FLUSH Physical Examination Vital signs: Vital Signs Pulse Ox 99 08/27/18 15:14 Results - Laboratory Findings CBC and BMP: 08/27/18 17:06 08/27/18 17:06 PT/INR, D-dimer PT 17.4 Sec. (12.2-14.9) H 08/27/18 17:06 INR 1.34 (0.87-1.13) H 08/27/18 17:06 Abnormal lab findings: Abnormal Labs 08/27/18 08/27/18 08/27/18 17:06 17:06 17:06 WBC 3.0 L [place] % (Auto) 8.1 H Lymph # 1.0 L Seg Neutrophils # 1.6 L PT 17.4 H INR 1.34 H BUN 28 H Creatinine 0.6 L Glucose 188 H POC Glucose 08/27/18 08/28/18 08/28/18 21:24 07:45 12:05 WBC [place] % (Auto) Lymph # Seg Neutrophils # PT INR BUN Creatinine Glucose POC Glucose 121 H 176 H 195 H 08/28/18 16:19 WBC [place] % (Auto) Lymph # Seg Neutrophils # PT INR BUN Creatinine Glucose POC Glucose 164 H
[2018-08-28] MEDS: MAG-OX PO SCH (19:04)
[2018-08-28] MEDS: PEPCID FEEDTUBE SCH (23:03)
--- NOTE | 2018-08-29 09:09 | Progress Note ---
Assessment and Plan Assessment and plan: --Acute on chronic respiratory failure; secondary to dislodged tracheostomy tube Patient is comfortable not in acute distress, follow-up pulmonary evaluation and recommendations and supportive care --History of seizure disorder; seizure precautions Continue home antiepileptic medications, neurology consult if needed --Type 2 diabetes mellitus; Accu-Chek sliding scale coverage and ADA diet Long-acting insulin, diabetic education closely monitor blood sugars --Hypertension; moderate control, continue current antihypertensives and when necessary medications --DVT prophylaxis; Lovenox Closely monitor the patient and adjust management as needed Follow-up pulmonary evaluation and recommendations Possible discharge in 1-2 days if stable History Interval history: Patient seen and examined medical records reviewed Patient was confused agitated requiring restraints Tolerating soft diet recommended by speech therapy Patient alert and awake Not in acute distress Hospitalist Physical - Constitutional Vitals: Temp Pulse Resp BP Pulse Ox 97.9 F 76 20 169/92 99 08/29/18 04:42 08/29/18 05:00 08/29/18 04:42 08/29/18 04:42 08/29/18 05:00 General appearance: Present: no acute distress, well-nourished, obese - EENT Eyes: Present: PERRL, EOM intact ENT: other (dressing at the site of tracheostomy) - Neck Neck: Present: supple, normal ROM - Respiratory Respiratory effort: normal Respiratory: bilateral: diminished, negative: rales, rhonchi, wheezing - Cardiovascular Rhythm: regular Heart Sounds: Present: S1 & S2 - Extremities Extremities: no ischemia, No edema - Abdominal General gastrointestinal: soft, non-tender, non-distended, normal bowel sounds, other (PEG In place ) - Integumentary Integumentary: Present: clear, warm - Psychiatric Psychiatric: appropriate mood/affect, cooperative - Neurologic Neurologic: CNII-XII intact, moves all extremities Results - Labs CBC & Chem 7: 08/27/18 17:06 08/27/18 17:06 Labs: Laboratory Last Values WBC 3.0 K/mm3 (4.5-11.0) L 08/27/18 17:06 RBC 3.66 M/mm3 (3.65-5.03) 08/27/18 17:06 Hgb 11.3 gm/dl (10.1-14.3) 08/27/18 17:06 Hct 34.0 % (30.3-42.9) 08/27/18 17:06 MCV 93 fl (79-97) 08/27/18 17:06 MCH 31 pg (28-32) 08/27/18 17:06 MCHC 33 % (30-34) 08/27/18 17:06 RDW 14.7 % (13.2-15.2) 08/27/18 17:06 Plt Count 164 K/mm3 (140-440) 08/27/18 17:06 Lymph % (Auto) 32.2 % (13.4-35.0) 08/27/18 17:06 [place] % (Auto) 8.1 % (0.0-7.3) H 08/27/18 17:06 Eos % (Auto) 3.5 % (0.0-4.3) 08/27/18 17:06 Baso % (Auto) 1.1 % (0.0-1.8) 08/27/18 17:06 Lymph # 1.0 K/mm3 (1.2-5.4) L 08/27/18 17:06 [place] # 0.2 K/mm3 (0.0-0.8) 08/27/18 17:06 Eos # 0.1 K/mm3 (0.0-0.4) 08/27/18 17:06 Baso # 0.0 K/mm3 (0.0-0.1) 08/27/18 17:06 Seg Neutrophils % 55.1 % (40.0-70.0) 08/27/18 17:06 Seg Neutrophils # 1.6 K/mm3 (1.8-7.7) L 08/27/18 17:06 PT 17.4 Sec. (12.2-14.9) H 08/27/18 17:06 INR 1.34 (0.87-1.13) H 08/27/18 17:06 APTT 26.3 Sec. (24.2-36.6) 08/27/18 17:06 Sodium 137 mmol/L (137-145) 08/27/18 17:06 Potassium 3.7 mmol/L (3.6-5.0) 08/27/18 17:06 Chloride 98.3 mmol/L (98-107) 08/27/18 17:06 Carbon Dioxide 27 mmol/L (22-30) 08/27/18 17:06 Anion Gap 15 mmol/L 08/27/18 17:06 BUN 28 mg/dL (7-17) H 08/27/18 17:06 Creatinine 0.6 mg/dL (0.7-1.2) L 08/27/18 17:06 Estimated GFR > 60 ml/min 08/27/18 17:06 BUN/Creatinine Ratio 47 % 08/27/18 17:06 Glucose 188 mg/dL (65-100) H 08/27/18 17:06 POC Glucose 208 (70-105) H 08/29/18 07:52 Calcium 9.2 mg/dL (8.4-10.2) 08/27/18 17:06 Total Creatine Kinase 33 units/L (30-135) 08/27/18 17:06 Nutrition/Malnutrition Assess - Dietary Evaluation Nutrition/Malnutrition Findings: Nutrition Notes Start: 08/28/18 13:56 Freq: Status: Active Protocol: Document 08/28/18 13:57 NIK (Rec: 08/28/18 14:17 NIK [email or web address]) Co-Sign 08/28/18 13:57 LP Nutrition Notes 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 screened for MST and assessment of previous TF. Pt. has PEG tube placed and stated she recieved nutrition support at her [facility]. RN stated she is trying to contact doctor for TF writing/ management consult. Burn Absent Trauma Absent Difficulty In Swallowing Food Allergy No Current % PO Negligible #1 Nutrition Diagnosis Inadequate oral intake Etiology Hx of dysphagia As Evidenced by Signs and Symptoms PEG tube placement, NPO status Is patient on ventilator? No Is Patient Ambulatory and/or Out of Bed No [facility] [phone] Calculation Used for Recommendations [facility] Additional Notes Pro needs: 66-79g/day (1-1.2 g /kg BW) Fluid needs: 1 ml/kcal Nutrition Intervention Change Diet Order: Keep NPO status Nutrition Support: Initiate TF when consulted: Glucerna at 50 ml/hr with water flush of 80ml q4h Kcal 1,440 Protein (gm) 72 Fluid (mL) 966 Goal #1 TF initiation Anticipated Discharge Needs: TF Follow-Up By: 08/30/18 Additional Comments F/u for TF consult
[2018-08-29] MEDS: PROzac PO SCH (11:02)
[2018-08-29] MEDS: VIMPAT PO SCH ×2 (11:02→21:50)
[2018-08-29] MEDS: MAG-OX PO SCH (11:03)
[2018-08-29] MEDS: KEPPRA FEEDTUBE SCH ×2 (11:03→21:50)
[2018-08-29] MEDS: COREG PO SCH ×2 (11:03→21:51)
[2018-08-29] MEDS: NORVASC FEEDTUBE SCH (11:04)
[2018-08-29] MEDS: SODIUM CHLORIDE FLUSH SYRINGE 10 ML IV SCH ×2 (11:13→21:51)
[2018-08-29] MEDS: METAMUCIL PO SCH (11:49)
[2018-08-29] MEDS ORDERED: SIMPLE SYRUP FEEDTUBE PRN ×4 (12:34→12:46)
[2018-08-29] MEDS ORDERED: SODIUM BICARBONATE FEEDTUBE PRN (12:46)
[2018-08-29] MEDS ORDERED: PANCREAZE DR 10,500 UNIT FEEDTUBE PRN (12:46)
[2018-08-29] MEDS: XANAX FEEDTUBE PRN (14:00)
[2018-08-29] MEDS: HumaLOG SUB-Q SCH (18:00)
--- NOTE | 2018-08-29 21:45 | Consultation ---
PULMONARY CONSULTATION CONSULTING PHYSICIAN: Dr. Tunde Mcgarry. REASON FOR CONSULTATION: Respiratory failure. CHIEF COMPLAINT AND HISTORY OF PRESENT ILLNESS: The patient is a 67-year-old -[place] female with past medical history significant most recently for an episode of status epilepticus that happened in April of last year. I believe she was initially at [facility]. She was transferred over to the [facility] due to the continued seizures and was ultimately managed there. As part of her management, I believe she was intubated. She required the placement of a tracheostomy and a percutaneous endoscopic gastrostomy tube. She was discharged from there to a subacute nursing facility. She was brought in to the Emergency Room here the day before I saw her after she was found to have dislodged her tracheostomy. Best estimate seems that the tracheostomy was probably out for a few days before it was found. She was brought in to the Emergency Room. In the ED, she was diagnosed with an acute on chronic respiratory failure, placed on supplemental oxygen. The trach stoma appeared to be closed up, mostly and they were unable to replace the trach. We are asked to assist with management. When I stopped by to see her, she was resting in bed, looked anxious, but she does have a history of anxiety disorder, denied acute chest pain, wanted to eat. This really is as much of the history of presentation as I have. She is described as a never smoker. PAST MEDICAL HISTORY: Diabetes, hypertension, seizure disorder, history of a cerebrovascular accident and chronic respiratory failure. PAST SURGICAL HISTORY: Status post tracheostomy, status post PEG placement. MEDICATIONS: She was on at the time I stopped by to see were reviewed. Pertinent medications included the following: She was on Tylenol 650 mg via feeding tube p.r.n. for mild pain or fevers, p.r.n. albuterol treatments 2.5 mg nebulized q.4h, Xanax 1 mg via feeding tube b.i.d. p.r.n., amlodipine 10 mg via feeding tube daily, Coreg 6.25 mg p.o. b.i.d., Pepcid 20 mg p.o. at bedtime, Prozac 20 mg p.o. daily, insulin 70/30, 36 units subq b.i.d., Vimpat 200 mg p.o. q. 12 hours, Keppra 1.5 grams p.o. b.i.d., magnesium oxide 400 mg p.o. daily, Zofran 4 mg IV 8 hours p.r.n. nausea and vomiting. ALLERGIES: No known drug allergies. DIET: Obese lady, acute weight loss or gain history is unknown. FAMILY AND SOCIAL HISTORY: Has been a resident of [facility] really since April of last year. Family denied alcohol, tobacco, or illicit drug use or abuse. Family history, otherwise noncontributory. REVIEW OF SYSTEMS: Difficult to obtain secondary to the patient's medical and mental condition. Since she has been here, no gross hematochezia or melena, no gross hematuria, no hematemesis, no hemoptysis. She denies chest pains. No witnessed seizures. No new onset focal weakness. Complete 13-system review of systems obtained as best as I could. Pertinent positives and/or negatives as in body of history above, otherwise they are noncontributory. PHYSICAL EXAMINATION: VITAL SIGNS: At presentation, she was afebrile, temperature 97.9 degrees Fahrenheit, pulse of 68, respiratory rate of 16, blood pressure 145/78, O2 sats were 99%, inspired oxygen concentration at that time was not recorded. At the time I saw her, her O2 sats were 95% that was on room air. GENERAL: Elderly-looking -T[place]isian female, normocephalic, resting in bed with mildly increased respiratory effort at rest. HEAD, EYES, EARS, NOSE AND THROAT: She is anicteric. No conjunctival erythema. Oropharynx was moist. Oropharynx is a Mallampati #2. She is partially edentulous. NECK: Midline tracheostomy stoma is clean. A single Band-Aid dressing is over it. The stoma appears to have closed on the surface. No gross thyromegaly. Grossly, no palpable lymph nodes in the supraclavicular or submandibular lymph node chains. LUNGS: Auscultation of both lung haro, scant basilar rhonchi, otherwise clear. No wheezing. HEART: Heart sounds 1 and 2 are heard at the time of my evaluation, regular rate and rhythm without rubs or murmurs. ABDOMEN: Soft, full, bowel sounds are positive, nontender. She has a PEG tube in place. EXTREMITIES: Without overt digital clubbing, cyanosis, no pedal edema. Dorsalis pedis pulses are palpable bilaterally. NEUROLOGIC: Pupils equal, round, about 3 mm, reactive to light. Extraocular muscle movements appeared intact. She moves all 4 extremities spontaneously. SKIN: Her skin is of poor turgor without overt cellulitis or rash. PSYCHIATRIC: Mood is probably appropriate. Her affect is anxious. LABORATORY DATA: From my review are as follows: Admission white cell count 3000, hemoglobin 11.3, hematocrit 34.0, platelet count 164. No manual differential. INR 1.34. Serum sodium 137, potassium 3.7, chloride 98, bicarbonate 27, BUN 28, creatinine 0.6, glucose 188. No cultures. RADIOLOGICAL DATA: Chest x-ray has been reviewed. Perhaps an element of hypoventilation. It is rotated to the left. There is an area in the left mid lung zones of plate-like atelectasis. No gross pneumothorax, no gross bony fracture. She has some hardware in her right clavicle. ASSESSMENT AND PLAN: 1. Chronic respiratory failure, status post tracheostomy. 2. Dislodged tracheostomy. 3. Seizure disorder. 4. Obesity. 5. Diabetes type 2. 6. History of hypertension. 7. History of cerebrovascular accident. 8. Anxiety disorder. PLAN: This trach stoma has closed at this point. It seems like the reason for placement was uncontrolled seizures which are now controlled. She does not have any overt cerebrovascular injury that should preclude her from continuing to maintain her airway open. With all of this in consideration, recommendations would be: 1. Local wound care to the trach stoma and follow her clinically. 2. Continue aspiration precautions. 3. Swallow evaluation should be done to see if she can tolerate oral meals. 4. Supplemental oxygen as necessary to keep sats greater than or equal to about 90%. 5. I will start her on some low dose Seroquel. Her anxiety is really out of bounds at my evaluation and she really has required being in restraints, which I think we can control. There may be some element of delirium/dementia at play here. She should continue her chronic disease medications, which includes Coreg and her antiepileptic drugs. She is appropriately on GI prophylaxis. I will put her on DVT prophylaxis. Flu and pneumonia vaccination will be addressed per protocol. Thank you very much for the consult. We will follow along. We will make further recommendations as picture progresses/becomes clearer. JOB# [id number] EMORY/TRUPTI GARCES
[2018-08-29] MEDS: PEPCID FEEDTUBE SCH (21:50)
[2018-08-30] MEDS: HumaLOG SUB-Q SCH ×4 (00:01→18:30)
[2018-08-30] MEDS: TYLENOL FEEDTUBE PRN (01:27)
[2018-08-30] MEDS: XANAX FEEDTUBE PRN (01:27)
[2018-08-30] MEDS: COREG PO SCH ×2 (09:12→21:56)
[2018-08-30] MEDS: NORVASC FEEDTUBE SCH (09:13)
[2018-08-30] MEDS: KEPPRA FEEDTUBE SCH ×2 (09:14→21:56)
[2018-08-30] MEDS: VIMPAT PO SCH ×2 (09:14→21:55)
[2018-08-30] MEDS: METAMUCIL PO SCH (09:15)
[2018-08-30] MEDS: MAG-OX PO SCH (09:15)
[2018-08-30] MEDS: PROzac PO SCH (09:15)
[2018-08-30] MEDS: SODIUM CHLORIDE FLUSH SYRINGE 10 ML IV SCH ×2 (09:16→21:57)
--- NOTE | 2018-08-30 14:09 | Progress Note ---
Assessment and Plan Acute on Chronic respiratory failure (status post tracheostomy) Dislodged Tracheostomy. Seizure disorder. Obesity. Diabetes type 2. History of hypertension. History of cerebrovascular accident. Anxiety disorder - no acute indication for replacing tracheostomy - continue local trach stoma woung care - continue seroquel for delirium - advance diet per [place] therapist recommendations - aspiration precautions - supplemental oxygen as needed to keep O2 sat's > 90% - GI & VTE prophylaxis - PT/OT - mobility protocol for pressure ulcer prophylaxis - continue glycemic control with accuchecks & SSI for target BG < 180 mg/dl - continue AED's for seizure disorder - continue other chronic disease meds per attending .... re-evaluate in am & prn Subjective Date of service: 08/29/18 Principal diagnosis: Ac on Ch Resp failure; Dislodged Tracheostomy; Seizure disorder; Obesity; D Interval history: LATE ENTRY FOR DOS 08/29/2018 Patient is seen today for: Acute on Chronic respiratory failure (status post tracheostomy); Dislodged Tracheostomy; Seizure disorder; Obesity; Diabetes type 2. Seen and examined at bedside; 24hour events reviewed; nursing and respiratory care staff consulted; no adverse overnight events reported to me; resting in bed; delirious somewhat today; in soft restraints; denies acute chest pains; no emesis or overt aspiration; ST evaluation ongoing Objective Vital Signs - 12hr 08/30/18 08/30/18 08/30/18 02:27 05:51 09:12 Temperature 98.7 F Pulse Rate 79 69 Respiratory 18 16 Rate Blood Pressure 132/78 127/76 O2 Sat by Pulse 98 Oximetry 08/30/18 08/30/18 09:13 12:25 Temperature 98.4 F Pulse Rate 69 71 Respiratory 20 Rate Blood Pressure 127/76 135/79 O2 Sat by Pulse 94 Oximetry Constitutional: no acute distress, alert, other (elderly looking AAF, normocephalic andatraumatic with mildly increased respiratory effort at rest) Eyes: non-icteric ENT: oropharynx moist Neck: supple, no lymphadenopathy, no JVD, other (midline tracheostomy stoma in dressing) Effort: mildly labored Ascultation: Bilateral: diminished breath sounds, rhonchi (scant in posterior base) Percussion: Bilateral: not dull Cardiovascular: regular rate and rhythm Gastrointestinal: normoactive bowel sounds, soft, non-tender, non-distended, other (+ PEG tube) Integumentary: other (poor t) Extremities: no cyanosis, no edema, pulses normal, no ischemia or petechiae Neurologic: normal mental status, pupils equal and round, CN II-XII normal, motor strength normal and Psychiatric: anxious CBC and BMP: 08/27/18 17:06 08/27/18 17:06 ABG, PT/INR, D-dimer: PT/INR, D-dimer PT 17.4 Sec. (12.2-14.9) H 08/27/18 17:06 INR 1.34 (0.87-1.13) H 08/27/18 17:06 Abnormal lab findings: Abnormal Labs 08/27/18 08/27/18 08/27/18 17:06 17:06 17:06 WBC 3.0 L [place] % (Auto) 8.1 H Lymph # 1.0 L Seg Neutrophils # 1.6 L PT 17.4 H INR 1.34 H BUN 28 H Creatinine 0.6 L Glucose 188 H POC Glucose 08/27/18 08/28/18 08/28/18 21:24 07:45 12:05 WBC [place] % (Auto) Lymph # Seg Neutrophils # PT INR BUN Creatinine Glucose POC Glucose 121 H 176 H 195 H 08/28/18 08/28/18 08/29/18 16:19 21:32 07:52 WBC [place] % (Auto) Lymph # Seg Neutrophils # PT INR BUN Creatinine Glucose POC Glucose 164 H 154 H 208 H 08/29/18 08/29/18 08/29/18 11:53 16:30 21:00 WBC [place] % (Auto) Lymph # Seg Neutrophils # PT INR BUN Creatinine Glucose POC Glucose 212 H 190 H 177 H 08/30/18 08/30/18 08/30/18 05:38 09:05 12:25 WBC [place] % (Auto) Lymph # Seg Neutrophils # PT INR BUN Creatinine Glucose POC Glucose 206 H 169 H 153 H Chest x-ray: image reviewed (no focal infiltrate) Allied health notes reviewed: nursing
--- NOTE | 2018-08-30 14:23 | Progress Note ---
Assessment and Plan Acute on Chronic respiratory failure (status post tracheostomy) Dislodged Tracheostomy. Seizure disorder. Obesity. Diabetes type 2. History of hypertension. History of cerebrovascular accident. Anxiety disorder - started some seroquel re: agitation / delirium - no acute indication for replacing tracheostomy - supplemental oxygen as needed to keep O2 sat's > 90% - continue local trach stoma wound care - advance diet per swallow therapist recommendations - aspiration precautions - GI & VTE prophylaxis - PT/OT - mobility protocol for pressure ulcer prophylaxis - continue glycemic control with accuchecks & SSI for target BG < 180 mg/dl - continue AED's for seizure disorder - continue other chronic disease meds per attending .... re-evaluate in am & prn Subjective Date of service: 08/30/18 Principal diagnosis: Ac on Ch Resp failure; Dislodged Tracheostomy; Seizure disorder; Obesity; D Interval history: Patient is seen today for: Acute on Chronic respiratory failure (status post tracheostomy); Dislodged Tracheostomy; Seizure disorder; Obesity; Diabetes type 2. Seen and examined at bedside; 24hour events reviewed; nursing and respiratory care staff consulted; no adverse overnight events reported to me; resting in bed; less agitated at time of my examination; still somewhat confused; No N/V/F/C Objective Vital Signs - 12hr 08/30/18 08/30/18 08/30/18 02:27 05:51 09:12 Temperature 98.7 F Pulse Rate 79 69 Respiratory 18 16 Rate Blood Pressure 132/78 127/76 O2 Sat by Pulse 98 Oximetry 08/30/18 08/30/18 09:13 12:25 Temperature 98.4 F Pulse Rate 69 71 Respiratory 20 Rate Blood Pressure 127/76 135/79 O2 Sat by Pulse 94 Oximetry Constitutional: no acute distress, alert, other (elderly looking AAF, n ormocephalic andatraumatic with mildly increased respiratory effort at rest) Eyes: non-icteric ENT: oropharynx moist Neck: supple, no lymphadenopathy, no JVD, other (midline tracheostomy stoma in dressing) Effort: mildly labored Ascultation: Bilateral: diminished breath sounds, rhonchi (scant in posterior base) Percussion: Bilateral: not dull Cardiovascular: regular rate and rhythm Gastrointestinal: normoactive bowel sounds, soft, non-tender, non-distended, other (+ PEG tube) Integumentary: other (poor t) Extremities: no cyanosis, no edema, pulses normal, no ischemia or petechiae Neurologic: normal mental status, pupils equal and round, CN II-XII normal, motor strength normal and Psychiatric: anxious CBC and BMP: 08/27/18 17:06 08/27/18 17:06 ABG, PT/INR, D-dimer: PT/INR, D-dimer PT 17.4 Sec. (12.2-14.9) H 08/27/18 17:06 INR 1.34 (0.87-1.13) H 08/27/18 17:06 Abnormal lab findings: Abnormal Labs 08/27/18 08/27/18 08/27/18 17:06 17:06 17:06 WBC 3.0 L [place] % (Auto) 8.1 H Lymph # 1.0 L Seg Neutrophils # 1.6 L PT 17.4 H INR 1.34 H BUN 28 H Creatinine 0.6 L Glucose 188 H POC Glucose 08/27/18 08/28/18 08/28/18 21:24 07:45 12:05 WBC [place] % (Auto) Lymph # Seg Neutrophils # PT INR BUN Creatinine Glucose POC Glucose 121 H 176 H 195 H 08/28/18 08/28/18 08/29/18 16:19 21:32 07:52 WBC [place] % (Auto) Lymph # Seg Neutrophils # PT INR BUN Creatinine Glucose POC Glucose 164 H 154 H 208 H 08/29/18 08/29/18 08/29/18 11:53 16:30 21:00 WBC [place] % (Auto) Lymph # Seg Neutrophils # PT INR BUN Creatinine Glucose POC Glucose 212 H 190 H 177 H 08/30/18 08/30/18 08/30/18 05:38 09:05 12:25 WBC [place] % (Auto) Lymph # Seg Neutrophils # PT INR BUN Creatinine Glucose POC Glucose 206 H 169 H 153 H Allied health notes reviewed: nursing
--- NOTE | 2018-08-30 21:25 | Progress Note ---
Assessment and Plan Assessment and plan: --Dislodged tracheostomy tube: The patient is tolerating well nasal cannula oxygen No acute need for tracheostomy tube placement, continue supportive care, tracheostomy site care Pulmonary following --Dysphagia;h/o PEG placement; continue PEG feeds Speech therapist recommend soft diet, patient is refusing Advised to continue PEG feeds and transferred back to long[facility]term facility [facility] s[facility] the [facility] --History of seizure disorder; seizure precautions Continue home antiepileptic medications, --Type 2 diabetes mellitus; Accu-Chek sliding scale coverage and ADA diet Long-acting insulin, diabetic education closely monitor blood sugars --Hypertension; moderate control, continue current antihypertensives and when necessary medications --DVT prophylaxis; Lovenox Closely monitor the patient and adjust management as needed Follow-up pulmonary evaluation and recommendations Possible discharge in 1-2 days if stable History Interval history: Patient seen and examined medical records reviewed Patient is educateds requiring restraints for safety Mild distress, patient is refusing oral diet vital signs stable Hospitalist Physical - Constitutional Vitals: Temp Pulse Resp BP Pulse Ox 98.8 F 98 H 22 149/98 99 08/30/18 17:16 08/30/18 17:16 08/30/18 17:16 08/30/18 17:16 08/30/18 17:16 General appearance: Present: no acute distress, well-nourished, obese - EENT Eyes: Present: PERRL, EOM intact - Neck Neck: Present: supple, normal ROM - Respiratory Respiratory effort: normal Respiratory: bilateral: diminished, negative: rales, rhonchi, wheezing - Cardiovascular Rhythm: regular Heart Sounds: Present: S1 & S2 - Extremities Extremities: no ischemia, No edema - Abdominal General gastrointestinal: soft, non-tender, non-distended, normal bowel sounds, other (PEG in place) - Integumentary Integumentary: Present: clear, warm - Psychiatric Psychiatric: other (noncommunicative) - Neurologic Neurologic: other (non communicative) Results - Labs CBC & Chem 7: 08/27/18 17:06 08/27/18 17:06 Labs: Laboratory Last Values WBC 3.0 K/mm3 (4.5-11.0) L 08/27/18 17:06 RBC 3.66 M/mm3 (3.65-5.03) 08/27/18 17:06 Hgb 11.3 gm/dl (10.1-14.3) 08/27/18 17:06 Hct 34.0 % (30.3-42.9) 08/27/18 17:06 MCV 93 fl (79-97) 08/27/18 17:06 MCH 31 pg (28-32) 08/27/18 17:06 MCHC 33 % (30-34) 08/27/18 17:06 RDW 14.7 % (13.2-15.2) 08/27/18 17:06 Plt Count 164 K/mm3 (140-440) 08/27/18 17:06 Lymph % (Auto) 32.2 % (13.4-35.0) 08/27/18 17:06 [place] % (Auto) 8.1 % (0.0-7.3) H 08/27/18 17:06 Eos % (Auto) 3.5 % (0.0-4.3) 08/27/18 17:06 Baso % (Auto) 1.1 % (0.0-1.8) 08/27/18 17:06 Lymph # 1.0 K/mm3 (1.2-5.4) L 08/27/18 17:06 [place] # 0.2 K/mm3 (0.0-0.8) 08/27/18 17:06 Eos # 0.1 K/mm3 (0.0-0.4) 08/27/18 17:06 Baso # 0.0 K/mm3 (0.0-0.1) 08/27/18 17:06 Seg Neutrophils % 55.1 % (40.0-70.0) 08/27/18 17:06 Seg Neutrophils # 1.6 K/mm3 (1.8-7.7) L 08/27/18 17:06 PT 17.4 Sec. (12.2-14.9) H 08/27/18 17:06 INR 1.34 (0.87-1.13) H 08/27/18 17:06 APTT 26.3 Sec. (24.2-36.6) 08/27/18 17:06 POC ABG pH 7.455 (7.35-7.45) H 08/30/18 15:46 POC ABG pCO2 36.3 (35-45) 08/30/18 15:46 POC ABG pO2 80 (80-105) 08/30/18 15:46 POC ABG HCO3 25.5 08/30/18 15:46 POC ABG Total CO2 27 08/30/18 15:46 POC ABG O2 Sat 96 08/30/18 15:46 POC ABG Base Excess 2 08/30/18 15:46 FiO2 21 % 08/30/18 15:46 Sodium 137 mmol/L (137-145) 08/27/18 17:06 Potassium 3.7 mmol/L (3.6-5.0) 08/27/18 17:06 Chloride 98.3 mmol/L (98-107) 08/27/18 17:06 Carbon Dioxide 27 mmol/L (22-30) 08/27/18 17:06 Anion Gap 15 mmol/L 08/27/18 17:06 BUN 28 mg/dL (7-17) H 08/27/18 17:06 Creatinine 0.6 mg/dL (0.7-1.2) L 08/27/18 17:06 Estimated GFR > 60 ml/min 08/27/18 17:06 BUN/Creatinine Ratio 47 % 08/27/18 17:06 Glucose 188 mg/dL (65-100) H 08/27/18 17:06 POC Glucose 202 (70-105) H 08/30/18 17:20 Calcium 9.2 mg/dL (8.4-10.2) 08/27/18 17:06 Total Creatine Kinase 33 units/L (30-135) 08/27/18 17:06 Nutrition/Malnutrition Assess - Dietary Evaluation Nutrition/Malnutrition Findings: Nutrition Notes Start: 08/28/18 13:56 Freq: Status: Active Protocol: Document 08/29/18 12:56 (Rec: 08/29/18 14:17 [email or web address]) Co-Sign 08/29/18 12:56 LP Nutrition Notes Initial or Follow up Brief Note Current Diagnosis Diabetes Hypertension Respiratory Failure Other Pertinent Diagnosis Dysphagia, Seizures, AMS Current Diet TF/Mechanical soft Subjective/Other Information Pt. consulted to write/manage TF. Pt. not eating mechanical soft foods. Glassie is leaving mechanical soft diet order for pleasure feeds. Nutrition Intervention Nutrition Support: Glucerna at 50 ml/hr with water flush of 80ml q4h Kcal 1,440 Protein (gm) 72 Fluid (mL) 966 Follow-Up By: 09/02/18 Additional Comments F/u for new TF, PO intakes
[2018-08-30] MEDS: PEPCID FEEDTUBE SCH (21:56)
[2018-08-31] MEDS: HumaLOG SUB-Q SCH ×4 (00:07→17:01)
[2018-08-31] MEDS: METAMUCIL PO SCH (10:22)
[2018-08-31] MEDS: KEPPRA FEEDTUBE SCH ×2 (10:22→22:38)
[2018-08-31] MEDS: SODIUM CHLORIDE FLUSH SYRINGE 10 ML IV SCH ×2 (10:23→22:40)
[2018-08-31] MEDS: NORVASC FEEDTUBE SCH (10:23)
[2018-08-31] MEDS: COREG PO SCH ×2 (10:23→22:41)
[2018-08-31] MEDS: XANAX FEEDTUBE PRN (10:23)
[2018-08-31] MEDS: PROzac PO SCH (10:23)
[2018-08-31] MEDS: MAG-OX PO SCH (10:23)
[2018-08-31] MEDS: VIMPAT PO SCH ×2 (10:23→22:40)
--- NOTE | 2018-08-31 13:27 | Progress Note ---
Assessment and Plan Assessment and plan: This is a 67-year-old female. The patient is a resident of a local detention, has a history of diabetes, seizure, hypertension, chronic respiratory failure, with indwelling tracheostomy. The patient was sent to the emergency room by her detention for displaced tracheostomy tube. --Dislodged tracheostomy tube: The patient is tolerating well nasal cannula oxygen No acute need for tracheostomy tube placement, continue supportive care, tracheostomy site care Pulmonary following --Dysphagia;h/o PEG placement; continue PEG feeds Speech therapist recommend soft diet, she has been tolerating diet, but not finishing her meals Continue TPN for supplements O2 sats at the detention --History of seizure disorder; seizure precautions Continue home antiepileptic medications, --Type 2 diabetes mellitus; Accu-Chek sliding scale coverage and ADA diet Long-acting insulin, diabetic education closely monitor blood sugars --Hypertension; moderate control, continue current antihypertensives and when necessary medications --DVT prophylaxis; Lovenox Closely monitor the patient and adjust management as needed Follow-up pulmonary evaluation and recommendations needs auth before she can be transferred to SNF, awaiting auth History Interval history: Review of systems Constitutional: No fevers, no malaise, no joint pains CVS: No chest pain, no orthopnea, no dyspnea on exertion, no pedal edema GI: No abdominal pain, no diarrhea, no vomiting, no constipation Respiratory: No shortness of breath, no wheezing, no coughing Hospitalist Physical - Physical exam Narrative exam: General.: Appears well, no distress, nontoxic HEENT: Moist mucous membranes, extraocular muscles intact, no lymphadenopathy Neck: supple Cardiac: S1-S2 heard Lungs: clear to auscultation bilaterally Abdomen: soft , nontender, nondistended, bowel sounds positive Extremities: no edema clubbing or cyanosis Skin: no rash or lesions Neurologic: Patient's is awake, she is confused Bedbound - Constitutional Vitals: Temp Pulse Resp BP Pulse Ox 98.4 F 74 18 143/87 96 08/31/18 13:20 08/31/18 13:20 08/31/18 13:20 08/31/18 13:20 08/31/18 13:20 General appearance: Present: no acute distress, well-nourished, obese Results - Labs CBC & Chem 7: 08/27/18 17:06 08/27/18 17:06 Labs: Laboratory Last Values WBC 3.0 K/mm3 (4.5-11.0) L 08/27/18 17:06 RBC 3.66 M/mm3 (3.65-5.03) 08/27/18 17:06 Hgb 11.3 gm/dl (10.1-14.3) 08/27/18 17:06 Hct 34.0 % (30.3-42.9) 08/27/18 17:06 MCV 93 fl (79-97) 08/27/18 17:06 MCH 31 pg (28-32) 08/27/18 17:06 MCHC 33 % (30-34) 08/27/18 17:06 RDW 14.7 % (13.2-15.2) 08/27/18 17:06 Plt Count 164 K/mm3 (140-440) 08/27/18 17:06 Lymph % (Auto) 32.2 % (13.4-35.0) 08/27/18 17:06 [place] % (Auto) 8.1 % (0.0-7.3) H 08/27/18 17:06 Eos % (Auto) 3.5 % (0.0-4.3) 08/27/18 17:06 Baso % (Auto) 1.1 % (0.0-1.8) 08/27/18 17:06 Lymph # 1.0 K/mm3 (1.2-5.4) L 08/27/18 17:06 [place] # 0.2 K/mm3 (0.0-0.8) 08/27/18 17:06 Eos # 0.1 K/mm3 (0.0-0.4) 08/27/18 17:06 Baso # 0.0 K/mm3 (0.0-0.1) 08/27/18 17:06 Seg Neutrophils % 55.1 % (40.0-70.0) 08/27/18 17:06 Seg Neutrophils # 1.6 K/mm3 (1.8-7.7) L 08/27/18 17:06 PT 17.4 Sec. (12.2-14.9) H 08/27/18 17:06 INR 1.34 (0.87-1.13) H 08/27/18 17:06 APTT 26.3 Sec. (24.2-36.6) 08/27/18 17:06 POC ABG pH 7.455 (7.35-7.45) H 08/30/18 15:46 POC ABG pCO2 36.3 (35-45) 08/30/18 15:46 POC ABG pO2 80 (80-105) 08/30/18 15:46 POC ABG HCO3 25.5 08/30/18 15:46 POC ABG Total CO2 27 08/30/18 15:46 POC ABG O2 Sat 96 08/30/18 15:46 POC ABG Base Excess 2 08/30/18 15:46 FiO2 21 % 08/30/18 15:46 Sodium 137 mmol/L (137-145) 08/27/18 17:06 Potassium 3.7 mmol/L (3.6-5.0) 08/27/18 17:06 Chloride 98.3 mmol/L (98-107) 08/27/18 17:06 Carbon Dioxide 27 mmol/L (22-30) 08/27/18 17:06 Anion Gap 15 mmol/L 08/27/18 17:06 BUN 28 mg/dL (7-17) H 08/27/18 17:06 Creatinine 0.6 mg/dL (0.7-1.2) L 08/27/18 17:06 Estimated GFR > 60 ml/min 08/27/18 17:06 BUN/Creatinine Ratio 47 % 08/27/18 17:06 Glucose 188 mg/dL (65-100) H 08/27/18 17:06 POC Glucose 208 (70-105) H 08/31/18 12:09 Calcium 9.2 mg/dL (8.4-10.2) 08/27/18 17:06 Total Creatine Kinase 33 units/L (30-135) 08/27/18 17:06 Nutrition/Malnutrition Assess - Dietary Evaluation Nutrition/Malnutrition Findings: Nutrition Notes Start: 08/28/18 13:56 Freq: Status: Active Protocol: Document 08/29/18 12:56 NIK (Rec: 08/29/18 14:17 NIK [email or web address]) Co-Sign 08/29/18 12:56 LP Nutrition Notes Initial or Follow up Brief Note Current Diagnosis Diabetes Hypertension Respiratory Failure Other Pertinent Diagnosis Dysphagia, Seizures, AMS Current Diet TF/Mechanical soft Subjective/Other Information Pt. consulted to write/manage TF. Pt. not eating mechanical soft foods. Household Appliance Mechanic is leaving mechanical soft diet order for pleasure feeds. Nutrition Intervention Nutrition Support: Glucerna at 50 ml/hr with water flush of 80ml q4h Kcal 1,440 Protein (gm) 72 Fluid (mL) 966 Follow-Up By: 09/02/18 Additional Comments F/u for new TF, PO intakes
--- NOTE | 2018-08-31 13:51 | Progress Note ---
Assessment and Plan Acute on Chronic respiratory failure (status post tracheostomy) Dislodged Tracheostomy. Seizure disorder. Obesity. Diabetes type 2. History of hypertension. History of cerebrovascular accident. Anxiety disorder - get ABG to r/o CO2 narcosis - continue seroquel re: agitation / delirium (reduce dose if hypercapnic on ABG) - no acute indication for replacing tracheostomy - continue supplemental oxygen as needed to keep O2 sat's > 90% - continue local trach stoma wound care - advance diet per swallow therapist recommendations - aspiration precautions - GI & VTE prophylaxis - PT/OT - mobility protocol for pressure ulcer prophylaxis - continue glycemic control with accuchecks & SSI for target BG < 180 mg/dl - continue AED's for seizure disorder - continue other chronic disease meds per attending .... re-evaluate in am & prn Subjective Date of service: 08/31/18 Principal diagnosis: Ac on Ch Resp failure; Dislodged Tracheostomy; Seizure disorder; Obesity; D Interval history: Patient is seen today for: Acute on Chronic respiratory failure (status post tracheostomy); Dislodged Tracheostomy; Seizure disorder; Obesity; Diabetes type 2. Seen and examined at bedside; 24hour events reviewed; nursing and respiratory care staff consulted; no adverse overnight events reported to me; resting in bed; lethargic; agitated earlier per RN; no N/V/F/C; no new issues otherwise Objective Vital Signs - 12hr 08/31/18 08/31/18 05:00 13:20 Temperature 97.9 F 98.4 F Pulse Rate 71 74 Respiratory 20 18 Rate Blood Pressure 157/98 143/87 O2 Sat by Pulse 97 96 Oximetry Constitutional: no acute distress, alert, other (elderly looking AAF, normocephalic andatraumatic with mildly increased respiratory effort at rest) Eyes: non-icteric ENT: oropharynx moist Neck: supple, no lymphadenopathy, no JVD, other (midline tracheostomy stoma in dressing) Effort: mildly labored Ascultation: Bilateral: diminished breath sounds, rhonchi (scant in posterior base), other (hypoventilation element) Percussion: Bilateral: not dull Cardiovascular: regular rate and rhythm Gastrointestinal: normoactive bowel sounds, soft, non-tender, non-distended, other (+ PEG tube) Integumentary: other (poor t) Extremities: no cyanosis, no edema, pulses normal, no ischemia or petechiae Neurologic: normal mental status, pupils equal and round, CN II-XII normal, motor strength normal and Psychiatric: anxious CBC and BMP: 08/27/18 17:06 08/27/18 17:06 ABG, PT/INR, D-dimer: ABG POC ABG pH 7.455 (7.35-7.45) H 08/30/18 15:46 POC ABG pCO2 36.3 (35-45) 08/30/18 15:46 POC ABG pO2 80 (80-105) 08/30/18 15:46 POC ABG HCO3 25.5 08/30/18 15:46 POC ABG Total CO2 27 08/30/18 15:46 POC ABG O2 Sat 96 08/30/18 15:46 PT/INR, D-dimer PT 17.4 Sec. (12.2-14.9) H 08/27/18 17:06 INR 1.34 (0.87-1.13) H 08/27/18 17:06 Abnormal lab findings: Abnormal Labs 08/27/18 08/27/18 08/27/18 17:06 17:06 17:06 WBC 3.0 L [place] % (Auto) 8.1 H Lymph # 1.0 L Seg Neutrophils # 1.6 L PT 17.4 H INR 1.34 H POC ABG pH BUN 28 H Creatinine 0.6 L Glucose 188 H POC Glucose 08/27/18 08/28/18 08/28/18 21:24 07:45 12:05 WBC [place] % (Auto) Lymph # Seg Neutrophils # PT INR POC ABG pH BUN Creatinine Glucose POC Glucose 121 H 176 H 195 H 08/28/18 08/28/18 08/29/18 16:19 21:32 07:52 WBC [place] % (Auto) Lymph # Seg Neutrophils # PT INR POC ABG pH BUN Creatinine Glucose POC Glucose 164 H 154 H 208 H 08/29/18 08/29/18 08/29/18 11:53 16:30 21:00 WBC [place] % (Auto) Lymph # Seg Neutrophils # PT INR POC ABG pH BUN Creatinine Glucose POC Glucose 212 H 190 H 177 H 08/30/18 08/30/18 08/30/18 05:38 09:05 12:25 WBC [place] % (Auto) Lymph # Seg Neutrophils # PT INR POC ABG pH BUN Creatinine Glucose POC Glucose 206 H 169 H 153 H 08/30/18 08/30/18 08/30/18 15:46 17:20 21:14 WBC [place] % (Auto) Lymph # Seg Neutrophils # PT INR POC ABG pH 7.455 H BUN Creatinine Glucose POC Glucose 202 H 179 H 08/31/18 08/31/18 07:37 12:09 WBC [place] % (Auto) Lymph # Seg Neutrophils # PT INR POC ABG pH BUN Creatinine Glucose POC Glucose 223 H 208 H Allied health notes reviewed: nursing
[2018-08-31] MEDS ORDERED: D50W (25GM) Syringe IV ONE ×2 (21:36→21:45)
[2018-08-31] MEDS: PEPCID FEEDTUBE SCH (22:39)
[2018-09-01] MEDS ORDERED: D50W (25GM) Syringe IV ONE ×2 (00:35→01:05)
[2018-09-01] MEDS: HumaLOG SUB-Q SCH ×4 (00:39→17:34)
[2018-09-01] MEDS ORDERED: D10W IV SCH (01:00)
[2018-09-01] MEDS: KEPPRA FEEDTUBE SCH ×2 (09:23→22:47)
[2018-09-01] MEDS: NORVASC FEEDTUBE SCH (09:24)
[2018-09-01] MEDS: VIMPAT PO SCH ×2 (09:24→22:48)
[2018-09-01] MEDS: MAG-OX PO SCH (09:24)
[2018-09-01] MEDS: PROzac PO SCH (09:25)
[2018-09-01] MEDS: COREG PO SCH ×2 (09:28→22:48)
[2018-09-01] MEDS ORDERED: PNEUMOVAX 23 IM ONE (12:00)
--- NOTE | 2018-09-01 13:24 | Progress Note ---
Assessment and Plan Assessment and plan: This is a 67-year-old female. The patient is a resident of a local senior living, has a history of diabetes, seizure, hypertension, chronic respiratory failure, with indwelling tracheostomy. The patient was sent to the emergency room by her senior living for displaced tracheostomy tube. --Dislodged tracheostomy tube: The patient is tolerating well nasal cannula oxygen No acute need for tracheostomy tube placement, continue supportive care, tracheostomy site care Pulmonary following --Dysphagia;h/o PEG placement; continue PEG feeds Speech therapist recommend soft diet, she has been tolerating diet, but not finishing her meals Continue TPN for supplements O2 sats at the senior living --History of seizure disorder; seizure precautions Continue home antiepileptic medications, --Type 2 diabetes mellitus; Accu-Chek sliding scale coverage and ADA diet Long-acting insulin, diabetic education closely monitor blood sugars --Hypertension; moderate control, continue current antihypertensives and when necessary medications --DVT prophylaxis; Lovenox Closely monitor the patient and adjust management as needed Follow-up pulmonary evaluation and recommendations needs auth before she can be transferred to SNF, awaiting auth History Interval history: Review of systems Constitutional: No fevers, no malaise, no joint pains CVS: No chest pain, no orthopnea, no dyspnea on exertion, no pedal edema GI: No abdominal pain, no diarrhea, no vomiting, no constipation Respiratory: No shortness of breath, no wheezing, no coughing Hospitalist Physical - Physical exam Narrative exam: General.: Appears well, no distress, nontoxic HEENT: Moist mucous membranes, extraocular muscles intact, no lymphadenopathy Neck: supple Cardiac: S1-S2 heard Lungs: clear to auscultation bilaterally Abdomen: soft , nontender, nondistended, bowel sounds positive Extremities: no edema clubbing or cyanosis Skin: no rash or lesions Neurologic: Patient's is awake, she is confused Bedbound - Constitutional Vitals: Temp Pulse Resp BP Pulse Ox 99.5 F 108 H 18 147/86 100 09/01/18 05:25 09/01/18 09:24 09/01/18 05:25 09/01/18 09:24 09/01/18 00:54 General appearance: Present: no acute distress, well-nourished, obese Results - Labs CBC & Chem 7: 08/27/18 17:06 08/27/18 17:06 Labs: Laboratory Last Values WBC 3.0 K/mm3 (4.5-11.0) L 08/27/18 17:06 RBC 3.66 M/mm3 (3.65-5.03) 08/27/18 17:06 Hgb 11.3 gm/dl (10.1-14.3) 08/27/18 17:06 Hct 34.0 % (30.3-42.9) 08/27/18 17:06 MCV 93 fl (79-97) 08/27/18 17:06 MCH 31 pg (28-32) 08/27/18 17:06 MCHC 33 % (30-34) 08/27/18 17:06 RDW 14.7 % (13.2-15.2) 08/27/18 17:06 Plt Count 164 K/mm3 (140-440) 08/27/18 17:06 Lymph % (Auto) 32.2 % (13.4-35.0) 08/27/18 17:06 [place] % (Auto) 8.1 % (0.0-7.3) H 08/27/18 17:06 Eos % (Auto) 3.5 % (0.0-4.3) 08/27/18 17:06 Baso % (Auto) 1.1 % (0.0-1.8) 08/27/18 17:06 Lymph # 1.0 K/mm3 (1.2-5.4) L 08/27/18 17:06 [place] # 0.2 K/mm3 (0.0-0.8) 08/27/18 17:06 Eos # 0.1 K/mm3 (0.0-0.4) 08/27/18 17:06 Baso # 0.0 K/mm3 (0.0-0.1) 08/27/18 17:06 Seg Neutrophils % 55.1 % (40.0-70.0) 08/27/18 17:06 Seg Neutrophils # 1.6 K/mm3 (1.8-7.7) L 08/27/18 17:06 PT 17.4 Sec. (12.2-14.9) H 08/27/18 17:06 INR 1.34 (0.87-1.13) H 08/27/18 17:06 APTT 26.3 Sec. (24.2-36.6) 08/27/18 17:06 POC ABG pH 7.455 (7.35-7.45) H 08/30/18 15:46 POC ABG pCO2 36.3 (35-45) 08/30/18 15:46 POC ABG pO2 80 (80-105) 08/30/18 15:46 POC ABG HCO3 25.5 08/30/18 15:46 POC ABG Total CO2 27 08/30/18 15:46 POC ABG O2 Sat 96 08/30/18 15:46 POC ABG Base Excess 2 08/30/18 15:46 FiO2 21 % 08/30/18 15:46 Sodium 137 mmol/L (137-145) 08/27/18 17:06 Potassium 3.7 mmol/L (3.6-5.0) 08/27/18 17:06 Chloride 98.3 mmol/L (98-107) 08/27/18 17:06 Carbon Dioxide 27 mmol/L (22-30) 08/27/18 17:06 Anion Gap 15 mmol/L 08/27/18 17:06 BUN 28 mg/dL (7-17) H 08/27/18 17:06 Creatinine 0.6 mg/dL (0.7-1.2) L 08/27/18 17:06 Estimated GFR > 60 ml/min 08/27/18 17:06 BUN/Creatinine Ratio 47 % 08/27/18 17:06 Glucose 188 mg/dL (65-100) H 08/27/18 17:06 POC Glucose 235 (70-105) H 09/01/18 11:35 Calcium 9.2 mg/dL (8.4-10.2) 08/27/18 17:06 Total Creatine Kinase 33 units/L (30-135) 08/27/18 17:06 Nutrition/Malnutrition Assess - Dietary Evaluation Nutrition/Malnutrition Findings: Nutrition Notes Start: 08/28/18 13:56 Freq: Status: Active Protocol: Document 08/29/18 12:56 (Rec: 08/29/18 14:17 [email or web address]) Co-Sign 08/29/18 12:56 LP Nutrition Notes Initial or Follow up Brief Note Current Diagnosis Diabetes Hypertension Respiratory Failure Other Pertinent Diagnosis Dysphagia, Seizures, AMS Current Diet TF/Mechanical soft Subjective/Other Information Pt. consulted to write/manage TF. Pt. not eating mechanical soft foods. Ship Worker is leaving mechanical soft diet order for pleasure feeds. Nutrition Intervention Nutrition Support: Glucerna at 50 ml/hr with water flush of 80ml q4h Kcal 1,440 Protein (gm) 72 Fluid (mL) 966 Follow-Up By: 09/02/18 Additional Comments F/u for new TF, PO intakes
[2018-09-01] MEDS: SODIUM CHLORIDE FLUSH SYRINGE 10 ML IV SCH ×2 (13:50→22:51)
[2018-09-01] MEDS: METAMUCIL PO SCH (13:51)
--- NOTE | 2018-09-01 15:23 | Progress Note ---
Assessment and Plan Acute on Chronic respiratory failure (status post tracheostomy) Dislodged Tracheostomy. Seizure disorder. Obesity. Diabetes type 2. History of hypertension. History of cerebrovascular accident. Anxiety disorder - continue seroquel re: agitation / delirium (reduce dose if hypercapnic on ABG) - no acute indication for replacing tracheostomy - continue supplemental oxygen as needed to keep O2 sat's > 90% - continue local trach stoma wound care - advance diet per swallow therapist recommendations - aspiration precautions - GI & VTE prophylaxis - PT/OT - mobility protocol for pressure ulcer prophylaxis - continue glycemic control with accuchecks & SSI for target BG < 180 mg/dl - continue AED's for seizure disorder - continue other chronic disease meds per attending .... re-evaluate in am & prn Subjective Date of service: 09/01/18 Principal diagnosis: Ac on Ch Resp failure; Dislodged Tracheostomy; Seizure disorder; Obesity; D Interval history: Patient is seen today for: Acute on Chronic respiratory failure (status post tracheostomy); Dislodged Tracheostomy; Seizure disorder; Obesity; Diabetes type 2. Seen and examined at bedside; 24hour events reviewed; nursing and respiratory care staff consulted; no adverse overnight events reported to me; resting in bed; ABG WNL yesterday; no N/V/F/C; remains on supplemental oxygen; no new issues otherwise Objective Vital Signs - 12hr 09/01/18 09/01/18 05:25 09:24 Temperature 99.5 F Pulse Rate 108 H Respiratory 18 Rate Blood Pressure 148/85 147/86 Constitutional: no acute distress, alert, other (elderly looking AAF, normocephalic andatraumatic with mildly increased respiratory effort at rest) Eyes: non-icteric ENT: oropharynx moist Neck: supple, no lymphadenopathy, no JVD, other (midline tracheostomy stoma in dressing) Effort: mildly labored Ascultation: Bilateral: diminished breath sounds, rhonchi (scant in posterior base) Percussion: Bilateral: not dull Cardiovascular: regular rate and rhythm Gastrointestinal: normoactive bowel sounds, soft, non-tender, non-distended, other (+ PEG tube) Integumentary: other (poor t) Extremities: no cyanosis, no edema, pulses normal, no ischemia or petechiae Neurologic: normal mental status, pupils equal and round, CN II-XII normal, motor strength normal and Psychiatric: anxious CBC and BMP: 08/27/18 17:06 08/27/18 17:06 ABG, PT/INR, D-dimer: ABG POC ABG pH 7.455 (7.35-7.45) H 08/30/18 15:46 POC ABG pCO2 36.3 (35-45) 08/30/18 15:46 POC ABG pO2 80 (80-105) 08/30/18 15:46 POC ABG HCO3 25.5 08/30/18 15:46 POC ABG Total CO2 27 08/30/18 15:46 POC ABG O2 Sat 96 08/30/18 15:46 PT/INR, D-dimer PT 17.4 Sec. (12.2-14.9) H 08/27/18 17:06 INR 1.34 (0.87-1.13) H 08/27/18 17:06 Abnormal lab findings: Abnormal Labs 08/27/18 08/27/18 08/27/18 17:06 17:06 17:06 WBC 3.0 L [place] % (Auto) 8.1 H Lymph # 1.0 L Seg Neutrophils # 1.6 L PT 17.4 H INR 1.34 H POC ABG pH BUN 28 H Creatinine 0.6 L Glucose 188 H POC Glucose 08/27/18 08/28/18 08/28/18 21:24 07:45 12:05 WBC [place] % (Auto) Lymph # Seg Neutrophils # PT INR POC ABG pH BUN Creatinine Glucose POC Glucose 121 H 176 H 195 H 08/28/18 08/28/18 08/29/18 16:19 21:32 07:52 WBC [place] % (Auto) Lymph # Seg Neutrophils # PT INR POC ABG pH BUN Creatinine Glucose POC Glucose 164 H 154 H 208 H 08/29/18 08/29/18 08/29/18 11:53 16:30 21:00 WBC [place] % (Auto) Lymph # Seg Neutrophils # PT INR POC ABG pH BUN Creatinine Glucose POC Glucose 212 H 190 H 177 H 08/30/18 08/30/18 08/30/18 05:38 09:05 12:25 WBC [place] % (Auto) Lymph # Seg Neutrophils # PT INR POC ABG pH BUN Creatinine Glucose POC Glucose 206 H 169 H 153 H 08/30/18 08/30/1808/30/19 15:46 17:20 21:14 WBC [place] % (Auto) Lymph # Seg Neutrophils # PT INR POC ABG pH 7.455 H BUN Creatinine Glucose POC Glucose 202 H 179 H 08/31/18 08/31/18 08/31/18 07:37 12:09 16:36 WBC [place] % (Auto) Lymph # Seg Neutrophils # PT INR POC ABG pH BUN Creatinine Glucose POC Glucose 223 H 208 H 125 H 08/31/18 08/31/18 09/01/18 21:30 22:09 00:34 WBC [place] % (Auto) Lymph # Seg Neutrophils # PT INR POC ABG pH BUN Creatinine Glucose POC Glucose 50 L 138 H 46 L 09/01/18 09/01/18 09/01/18 01:29 05:29 11:35 WBC [place] % (Auto) Lymph # Seg Neutrophils # PT INR POC ABG pH BUN Creatinine Glucose POC Glucose 130 H 189 H 235 H Allied health notes reviewed: nursing
[2018-09-01] MEDS: PEPCID FEEDTUBE SCH (22:47)
[2018-09-01] MEDS: XANAX FEEDTUBE PRN (22:50)
[2018-09-02] MEDS: HumaLOG SUB-Q SCH ×4 (00:59→17:19)
[2018-09-02] MEDS ORDERED: NORVASC FEEDTUBE ONE (02:30)
--- NOTE | 2018-09-02 09:07 | Progress Note ---
Assessment and Plan Assessment and plan: This is a 67-year-old female. The patient is a [facility] a local [facility], has a history of diabetes, seizure, hypertension, chronic respiratory failure, with indwelling tracheostomy. The patient was sent to the emergency room by her [facility] for displaced tracheostomy tube. --Dislodged tracheostomy tube: The patient is tolerating well nasal cannula oxygen No acute need for tracheostomy tube placement, continue supportive care, tracheostomy site care Pulmonary following --Dysphagia;h/o PEG placement; continue PEG feeds Speech therapist recommend soft diet, she has been tolerating diet, but not finishing her meals Continue TPN for supplements O2 sats at the [facility] --History of seizure disorder; seizure precautions Continue home antiepileptic medications, --Type 2 diabetes mellitus; Accu-Chek sliding scale coverage and ADA diet Long-acting insulin, diabetic education closely monitor blood sugars --Hypertension; moderate control, continue current antihypertensives and when necessary medications --DVT prophylaxis; Lovenox Closely monitor the patient and adjust management as needed Follow-up pulmonary evaluation and recommendations needs auth before she can be transferred to SNF, awaiting auth History Interval history: Review of systems Constitutional: No fevers, no malaise, no joint pains CVS: No chest pain, no orthopnea, no dyspnea on exertion, no pedal edema GI: No abdominal pain, no diarrhea, no vomiting, no constipation Respiratory: No shortness of breath, no wheezing, no coughing Hospitalist Physical - Physical exam Narrative exam: General.: Appears well, no distress, nontoxic HEENT: Moist mucous membranes, extraocular muscles intact, no lymphadenopathy Neck: supple Cardiac: S1-S2 heard Lungs: clear to auscultation bilaterally Abdomen: soft , nontender, nondistended, bowel sounds positive Extremities: no edema clubbing or cyanosis Skin: no rash or lesions Neurologic: Patient's is awake, she is confused Bedbound - Constitutional Vitals: Temp Pulse Resp BP Pulse Ox 98.4 F 77 18 135/76 97 09/02/18 05:49 09/02/18 05:49 09/02/18 05:49 09/02/18 05:49 09/02/18 05:49 General appearance: Present: no acute distress, well-nourished, obese Results - Labs CBC & Chem 7: 08/27/18 17:06 08/27/18 17:06 Labs: Laboratory Last Values WBC 3.0 K/mm3 (4.5-11.0) L 08/27/18 17:06 RBC 3.66 M/mm3 (3.65-5.03) 08/27/18 17:06 Hgb 11.3 gm/dl (10.1-14.3) 08/27/18 17:06 Hct 34.0 % (30.3-42.9) 08/27/18 17:06 MCV 93 fl (79-97) 08/27/18 17:06 MCH 31 pg (28-32) 08/27/18 17:06 MCHC 33 % (30-34) 08/27/18 17:06 RDW 14.7 % (13.2-15.2) 08/27/18 17:06 Plt Count 164 K/mm3 (140-440) 08/27/18 17:06 Lymph % (Auto) 32.2 % (13.4-35.0) 08/27/18 17:06 [place] % (Auto) 8.1 % (0.0-7.3) H 08/27/18 17:06 Eos % (Auto) 3.5 % (0.0-4.3) 08/27/18 17:06 Baso % (Auto) 1.1 % (0.0-1.8) 08/27/18 17:06 Lymph # 1.0 K/mm3 (1.2-5.4) L 08/27/18 17:06 [place] # 0.2 K/mm3 (0.0-0.8) 08/27/18 17:06 Eos # 0.1 K/mm3 (0.0-0.4) 08/27/18 17:06 Baso # 0.0 K/mm3 (0.0-0.1) 08/27/18 17:06 Seg Neutrophils % 55.1 % (40.0-70.0) 08/27/18 17:06 Seg Neutrophils # 1.6 K/mm3 (1.8-7.7) L 08/27/18 17:06 PT 17.4 Sec. (12.2-14.9) H 08/27/18 17:06 INR 1.34 (0.87-1.13) H 08/27/18 17:06 APTT 26.3 Sec. (24.2-36.6) 08/27/18 17:06 POC ABG pH 7.455 (7.35-7.45) H 08/30/18 15:46 POC ABG pCO2 36.3 (35-45) 08/30/18 15:46 POC ABG pO2 80 (80-105) 08/30/18 15:46 POC ABG HCO3 25.5 08/30/18 15:46 POC ABG Total CO2 27 08/30/18 15:46 POC ABG O2 Sat 96 08/30/18 15:46 POC ABG Base Excess 2 08/30/18 15:46 FiO2 21 % 08/30/18 15:46 Sodium 137 mmol/L (137-145) 08/27/18 17:06 Potassium 3.7 mmol/L (3.6-5.0) 08/27/18 17:06 Chloride 98.3 mmol/L (98-107) 08/27/18 17:06 Carbon Dioxide 27 mmol/L (22-30) 08/27/18 17:06 Anion Gap 15 mmol/L 08/27/18 17:06 BUN 28 mg/dL (7-17) H 08/27/18 17:06 Creatinine 0.6 mg/dL (0.7-1.2) L 08/27/18 17:06 Estimated GFR > 60 ml/min 08/27/18 17:06 BUN/Creatinine Ratio 47 % 08/27/18 17:06 Glucose 188 mg/dL (65-100) H 08/27/18 17:06 POC Glucose 245 (70-105) H 09/02/18 06:30 Calcium 9.2 mg/dL (8.4-10.2) 08/27/18 17:06 Total Creatine Kinase 33 units/L (30-135) 08/27/18 17:06 Nutrition/Malnutrition Assess - Dietary Evaluation Nutrition/Malnutrition Findings: Nutrition Notes Start: 08/28/18 13:56 Freq: Status: Active Protocol: Document 08/29/18 12:56 NIK (Rec: 08/29/18 14:17 NIK [id number]) Co-Sign 08/29/18 12:56 LP Nutrition Notes Initial or Follow up Brief Note Current Diagnosis Diabetes Hypertension Respiratory Failure Other Pertinent Diagnosis Dysphagia, Seizures, AMS Current Diet TF/Mechanical soft Subjective/Other Information Pt. consulted to write/manage TF. Pt. not eating mechanical soft foods. Supervisor [employer] is leaving mechanical soft diet order for pleasure feeds. Nutrition Intervention Nutrition Support: Glucerna at 50 ml/hr with water flush of 80ml q4h Kcal 1,440 Protein (gm) 72 Fluid (mL) 966 Follow-Up By: 09/02/18 Additional Comments F/u for new TF, PO intakes
--- NOTE | 2018-09-02 09:12 | Discharge Summary ---
Providers - Providers Date of Admission: 08/27/18 19:12 Attending physician: ASHELY WHEELER MD 08/27/18 16:50 Consult to Physician [CONS] Urgent Comment: Consulting Provider: SARWAT MENDEZ Physician Instructions: Reason For Exam: resp failure 08/28/18 19:49 Speech Therapy Evaluation and Treat [CONS] Routine Reason For Exam: swallow evaluation 08/29/18 12:34 Consult to Dietitian/Nutrition [CONS] Routine Physician Instructions: Assess nutrtn needs, initiate, modify, manage TF Reason For Exam: Reason for Consult: Write/Manage Tube Feeding Reason for Consult: Write/Manage Tube Feeding Primary care physician: SUPERVISOR TUBING Hospitalization Condition: Good Hospital course: This is a 67-year-old female. The patient is a resident of a local [facility], has a history of diabetes, seizure, hypertension, chronic respiratory failure, with indwelling tracheostomy. The patient was sent to the emergency room by her detention for displaced tracheostomy tube. -She was saturating well on room air, she was seen by pulmonology, recommended he does do need to replace tracheostomy tube. She suffered dysphagia, she was seen by speech therapist and was started on soft diet, she is continued on tube feeding as she is not finishing her meals -She did have episodes of hypoglycemia, insulins were optimized -She was continued on medications for chronic conditions Diagnoses --Dislodged tracheostomy tube: --Dysphagia; h/o PEG placement; --History of seizure disorder; --Type 2 diabetes mellitus; -Hypoglycemia --Hypertension; Dementia moderate malnutrition Disposition: DC/[place]-03 SNF [facility] Time spent for discharge: 33 mins Core Measure Documentation - Palliative Care Palliative Care/ Comfort Measures: Not Applicable - Core Measures Any of the following diagnoses?: none Exam - Physical Exam Narrative exam: General.: Appears well, no distress, nontoxic HEENT: Moist mucous membranes, extraocular muscles intact, no lymphadenopathy Neck: supple Cardiac: S1-S2 heard Lungs: clear to auscultation bilaterally Abdomen: soft , nontender, nondistended, bowel sounds positive Extremities: no edema clubbing or cyanosis Skin: no rash or lesions Neurologic: Patient's is awake, she is confused Bedbound - Constitutional Vitals: Temp Pulse Resp BP Pulse Ox 98.4 F 77 18 135/76 97 09/02/18 05:49 09/02/18 05:49 09/02/18 05:49 09/02/18 05:49 09/02/18 05:49 Plan Follow up with: PRIMARY CARE, [Primary Care Provider] - 3-5 Days Forms: Accompanied Note Prescriptions: RX: ALPRAZolam [Xanax] 1 mg FEEDTUBE BID PRN #7 tablet PRN Reason: Anxiety traMADol 50 mg FEEDTUBE Q12H PRN #7 PRN Reason: Pain , Severe (7-10)
[2018-09-02] MEDS: KEPPRA FEEDTUBE SCH ×2 (09:57→21:29)
[2018-09-02] MEDS: MAG-OX PO SCH (09:57)
[2018-09-02] MEDS: METAMUCIL PO SCH (09:58)
[2018-09-02] MEDS: COREG PO SCH ×2 (09:58→21:30)
[2018-09-02] MEDS: VIMPAT PO SCH ×2 (09:58→21:29)
[2018-09-02] MEDS: PROzac PO SCH (09:58)
[2018-09-02] MEDS: SODIUM CHLORIDE FLUSH SYRINGE 10 ML IV SCH ×2 (09:59→21:31)
[2018-09-02] MEDS: NORVASC FEEDTUBE SCH (10:00)
[2018-09-02] MEDS: XANAX FEEDTUBE PRN (12:53)
[2018-09-02] MEDS: LANTUS SUB-Q SCH (12:53)
[2018-09-02] MEDS: TYLENOL FEEDTUBE PRN (21:29)
[2018-09-02] MEDS: PEPCID FEEDTUBE SCH (21:30)
[2018-09-03] MEDS: HumaLOG SUB-Q SCH ×3 (00:32→12:50)
[2018-09-03] MEDS: SODIUM BICARBONATE FEEDTUBE PRN ×2 (02:08→02:48)
[2018-09-03] MEDS: PANCREAZE DR 10,500 UNIT FEEDTUBE PRN ×2 (02:09→02:48)
[2018-09-03] MEDS: LANTUS SUB-Q SCH (10:57)
[2018-09-03] MEDS: COREG PO SCH (11:02)
[2018-09-03] MEDS: KEPPRA FEEDTUBE SCH (11:02)
[2018-09-03] MEDS: MAG-OX PO SCH (11:02)
[2018-09-03] MEDS: SODIUM CHLORIDE FLUSH SYRINGE 10 ML IV SCH (11:03)
[2018-09-03] MEDS: NORVASC FEEDTUBE SCH (11:03)
[2018-09-03] MEDS: VIMPAT PO SCH (11:03)
[2018-09-03] MEDS: PROzac PO SCH (11:03)
[2018-09-03] MEDS: METAMUCIL PO SCH (11:24)
[2018-09-03] MEDS: XANAX FEEDTUBE PRN (11:28)
--- NOTE | 2018-09-03 12:11 | Progress Note ---
Hospitalist Physical - Constitutional Vitals: Temp Pulse Resp BP Pulse Ox 98.4 F 73 16 131/79 99 09/03/18 05:21 09/03/18 11:02 09/03/18 05:21 09/03/18 11:02 09/03/18 05:21 General appearance: Present: no acute distress, well-nourished, obese Results - Labs CBC & Chem 7: 08/27/18 17:06 08/27/18 17:06 Labs: Laboratory Last Values WBC 3.0 K/mm3 (4.5-11.0) L 08/27/18 17:06 RBC 3.66 M/mm3 (3.65-5.03) 08/27/18 17:06 Hgb 11.3 gm/dl (10.1-14.3) 08/27/18 17:06 Hct 34.0 % (30.3-42.9) 08/27/18 17:06 MCV 93 fl (79-97) 08/27/18 17:06 MCH 31 pg (28-32) 08/27/18 17:06 MCHC 33 % (30-34) 08/27/18 17:06 RDW 14.7 % (13.2-15.2) 08/27/18 17:06 Plt Count 164 K/mm3 (140-440) 08/27/18 17:06 Lymph % (Auto) 32.2 % (13.4-35.0) 08/27/18 17:06 [place] % (Auto) 8.1 % (0.0-7.3) H 08/27/18 17:06 Eos % (Auto) 3.5 % (0.0-4.3) 08/27/18 17:06 Baso % (Auto) 1.1 % (0.0-1.8) 08/27/18 17:06 Lymph # 1.0 K/mm3 (1.2-5.4) L 08/27/18 17:06 [place] # 0.2 K/mm3 (0.0-0.8) 08/27/18 17:06 Eos # 0.1 K/mm3 (0.0-0.4) 08/27/18 17:06 Baso # 0.0 K/mm3 (0.0-0.1) 08/27/18 17:06 Seg Neutrophils % 55.1 % (40.0-70.0) 08/27/18 17:06 Seg Neutrophils # 1.6 K/mm3 (1.8-7.7) L 08/27/18 17:06 PT 17.4 Sec. (12.2-14.9) H 08/27/18 17:06 INR 1.34 (0.87-1.13) H 08/27/18 17:06 APTT 26.3 Sec. (24.2-36.6) 08/27/18 17:06 POC ABG pH 7.455 (7.35-7.45) H 08/30/18 15:46 POC ABG pCO2 36.3 (35-45) 08/30/18 15:46 POC ABG pO2 80 (80-105) 08/30/18 15:46 POC ABG HCO3 25.5 08/30/18 15:46 POC ABG Total CO2 27 08/30/18 15:46 POC ABG O2 Sat 96 08/30/18 15:46 POC ABG Base Excess 2 08/30/18 15:46 FiO2 21 % 08/30/18 15:46 Sodium 137 mmol/L (137-145) 08/27/18 17:06 Potassium 3.7 mmol/L (3.6-5.0) 08/27/18 17:06 Chloride 98.3 mmol/L (98-107) 08/27/18 17:06 Carbon Dioxide 27 mmol/L (22-30) 08/27/18 17:06 Anion Gap 15 mmol/L 08/27/18 17:06 BUN 28 mg/dL (7-17) H 08/27/18 17:06 Creatinine 0.6 mg/dL (0.7-1.2) L 08/27/18 17:06 Estimated GFR > 60 ml/min 08/27/18 17:06 BUN/Creatinine Ratio 47 % 08/27/18 17:06 Glucose 188 mg/dL (65-100) H 08/27/18 17:06 POC Glucose 201 (70-105) H 09/03/18 05:50 Calcium 9.2 mg/dL (8.4-10.2) 08/27/18 17:06 Total Creatine Kinase 33 units/L (30-135) 08/27/18 17:06 Nutrition/Malnutrition Assess - Dietary Evaluation Nutrition/Malnutrition Findings: Nutrition Notes Start: 08/28/18 13:56 Freq: Status: Active Protocol: Document 09/02/18 15:46 RM (Rec: 09/02/18 15:51 RM [id number]) Nutrition Notes Initial or Follow up Reassessment Current Diagnosis Diabetes Hypertension Respiratory Failure Other Pertinent Diagnosis Dysphagia, Seizures, AMS, PEG, Hx CVA, Anxiety disorder Current Diet Mechanical soft Labs/Tests No recent labs Pertinent Medications Reviewed Height 5 ft 4 in Weight 84.9 kg [place] Body Weight (kg) 54.54 BMI 32.1 Subjective/Other Information Observed Glucerna 1.2 infusing at 50 ml/hr. Per nurse pt is receiving TF and meals but pt eats very little of the meals. Also stated pt is tolerating TF. Percent of energy/protein needs met: 88%/100% Burn Absent Trauma Absent #1 Nutrition Diagnosis Inadequate oral intake Diagnosis Progress(for reassessment Continues documentation) Is patient on ventilator? No Is Patient Ambulatory and/or Out of Bed No REE-(Piffard-St. Jeor-confined to bed) [phone] Calculation Used for Recommendations Piffard-St Jeor Additional Notes Pro needs: 66-79g/day (1-1.2 g /kg BW) Fluid needs: 1 ml/kcal Nutrition Intervention Change Diet Order: Continue current Nutrition Support: Glucerna at 50 ml/hr with water flush of 80ml q4h Kcal 1,440 Protein (gm) 72 Fluid (mL) 966 Goal #1 Continue to meet at least 75% of calorie and protein need via TF Anticipated Discharge Needs: TF Follow-Up By: 09/10/18 Additional Comments Follow for TF tolerance
--- NOTE | 2018-09-03 16:59 | Progress Note ---
Assessment and Plan Acute on Chronic respiratory failure (status post tracheostomy) Dislodged Tracheostomy. Seizure disorder. Obesity. Diabetes type 2. History of hypertension. History of cerebrovascular accident. Anxiety disorder - continue seroquel re: agitation / delirium (reduce dose if hypercapnic on ABG) - no acute indication for replacing tracheostomy - continue supplemental oxygen as needed to keep O2 sat's > 90% - continue local trach stoma wound care - advance diet per swallow therapist recommendations - aspiration precautions - GI & VTE prophylaxis - PT/OT - mobility protocol for pressure ulcer prophylaxis - continue glycemic control with accuchecks & SSI for target BG < 180 mg/dl - continue AED's for seizure disorder - continue other chronic disease meds per attending -discharge planning Subjective Date of service: 09/03/18 Principal diagnosis: Ac on Ch Resp failure; Dislodged Tracheostomy; Seizure disorder; Obesity; D Interval history: Patient is seen today for: Acute on Chronic respiratory failure (status post tracheostomy); Dislodged Tracheostomy; Seizure disorder; Obesity; Diabetes type 2. Seen and examined at bedside; 24hour events reviewed; nursing and respiratory care staff consulted; no adverse overnight events reported to me; resting in bed; lethargic; agitated earlier per RN; no N/V/F/C; no new issues otherwise Objective Vital Signs - 12hr 09/03/18 09/03/18 05:21 11:02 Temperature 98.4 F Pulse Rate 65 73 Respiratory 16 Rate Blood Pressure 118/70 131/79 O2 Sat by Pulse 99 Oximetry Constitutional: no acute distress, alert, other (elderly looking AAF, normocephalic andatraumatic with mildly increased respiratory effort at rest) Eyes: non-icteric ENT: oropharynx moist Neck: supple, no lymphadenopathy, no JVD, other (midline tracheostomy stoma in dressing) Effort: mildly labored Ascultation: Bilateral: diminished breath sounds, rhonchi (scant in posterior base), other (hypoventilation element) Percussion: Bilateral: not dull Cardiovascular: regular rate and rhythm Gastrointestinal: normoactive bowel sounds, soft, non-tender, non-distended, other (+ PEG tube) Integumentary: normal Extremities: no cyanosis, no edema, pulses normal, no ischemia or petechiae Neurologic: non-focal exam, pupils equal and round, other (moves all extemities) Psychiatric: tearful CBC and BMP: 08/27/18 17:06 08/27/18 17:06 ABG, PT/INR, D-dimer: ABG POC ABG pH 7.455 (7.35-7.45) H 08/30/18 15:46 POC ABG pCO2 36.3 (35-45) 08/30/18 15:46 POC ABG pO2 80 (80-105) 08/30/18 15:46 POC ABG HCO3 25.5 08/30/18 15:46 POC ABG Total CO2 27 08/30/18 15:46 POC ABG O2 Sat 96 08/30/18 15:46 PT/INR, D-dimer PT 17.4 Sec. (12.2-14.9) H 08/27/18 17:06 INR 1.34 (0.87-1.13) H 08/27/18 17:06 Abnormal lab findings: Abnormal Labs 08/27/18 08/27/18 08/27/18 17:06 17:06 17:06 WBC 3.0 L [place] % (Auto) 8.1 H Lymph # 1.0 L Seg Neutrophils # 1.6 L PT 17.4 H INR 1.34 H POC ABG pH BUN 28 H Creatinine 0.6 L Glucose 188 H POC Glucose 08/27/18 08/28/18 08/28/18 21:24 07:45 12:05 WBC [place] % (Auto) Lymph # Seg Neutrophils # PT INR POC ABG pH BUN Creatinine Glucose POC Glucose 121 H 176 H 195 H 08/28/18 08/28/18 08/29/18 16:19 21:32 07:52 WBC [place] % (Auto) Lymph # Seg Neutrophils # PT INR POC ABG pH BUN Creatinine Glucose POC Glucose 164 H 154 H 208 H 08/29/18 08/29/18 08/29/18 11:53 16:30 21:00 WBC [place] % (Auto) Lymph # Seg Neutrophils # PT INR POC ABG pH BUN Creatinine Glucose POC Glucose 212 H 190 H 177 H 08/30/18 08/30/18 08/30/18 05:38 09:05 12:25 WBC [place] % (Auto) Lymph # Seg Neutrophils # PT INR POC ABG pH BUN Creatinine Glucose POC Glucose 206 H 169 H 153 H 08/30/18 08/30/18 08/30/18 15:46 17:20 21:14 WBC [place] % (Auto) Lymph # Seg Neutrophils # PT INR POC ABG pH 7.455 H BUN Creatinine Glucose POC Glucose 202 H 179 H 08/31/18 08/31/18 08/31/18 07:37 12:09 16:36 WBC [place] % (Auto) Lymph # Seg Neutrophils # PT INR POC ABG pH BUN Creatinine Glucose POC Glucose 223 H 208 H 125 H 08/31/18 08/31/18 09/01/18 21:30 22:09 00:34 WBC [place] % (Auto) Lymph # Seg Neutrophils # PT INR POC ABG pH BUN Creatinine Glucose POC Glucose 50 L 138 H 46 L 09/01/18 09/01/18 09/01/18 01:29 05:29 11:35 WBC [place] % (Auto) Lymph # Seg Neutrophils # PT INR POC ABG pH BUN Creatinine Glucose POC Glucose 130 H 189 H 235 H 09/01/18 09/02/18 09/02/18 16:58 00:48 06:30 WBC [place] % (Auto) Lymph # Seg Neutrophils # PT INR POC ABG pH BUN Creatinine Glucose POC Glucose 224 H 259 H 245 H 09/02/18 09/02/18 09/02/18 11:48 16:25 21:27 WBC [place] % (Auto) Lymph # Seg Neutrophils # PT INR POC ABG pH BUN Creatinine Glucose POC Glucose 279 H 236 H 193 H 09/03/18 09/03/18 05:50 12:17 WBC [place] % (Auto) Lymph # Seg Neutrophils # PT INR POC ABG pH BUN Creatinine Glucose POC Glucose 201 H 258 H Allied health notes reviewed: nursing
[2018-09-03 19:35] VITALS: BP 133/70
== END 2018-09-03 17:00 | DRG 206 ==
LOC: ED 14:58 → 2B-ACE 19:12 → 3A 19:59
PROVIDERS: ADMIT Internal Medicine; ATTEND Internal Medicine
PROC: 4A033R1 Measurement of Arterial Saturation, Peripheral, Percutaneous Approach (ICD-10-PCS; 2018-08-30)
PROC: 3E0234Z Introduction of Serum, Toxoid and Vaccine into Muscle, Percutaneous Approach (ICD-10-PCS; principal; 2018-09-01)
DX: J95.03 Malfunction of tracheostomy stoma (principal); E44.0 Moderate protein-calorie malnutrition; J95.00 Unspecified tracheostomy complication; G40.909 Epilepsy, unspecified, not intractable, without status epilepticus; Y83.8 Other surgical procedures as the cause of abnormal reaction of the patient, or of later complication, without mention of misadventure at the time of the procedure; F32.9 Major depressive disorder, single episode, unspecified; F41.9 Anxiety disorder, unspecified; E11.649 Type 2 diabetes mellitus with hypoglycemia without coma; I10 Essential (primary) hypertension; Z82.49 Family history of ischemic heart disease and other diseases of the circulatory system; Z79.01 Long term (current) use of anticoagulants; Z79.4 Long term (current) use of insulin; Z79.899 Other long term (current) drug therapy; Y92.098 Other place in other non-institutional residence as the place of occurrence of the external cause; Z86.73 Personal history of transient ischemic attack (TIA), and cerebral infarction without residual deficits; Z93.1 Gastrostomy status; Z23 Encounter for immunization; Z68.32 Body mass index [BMI] 32.0-32.9, adult
CPT/HCPCS: 36415; 36600; 71045; 80048; 82550; 82803; 82962; 85025; 85610; 85730; 90732; 96374; 99285; G0378; J1815